=== PATIENT | female | born 1975 | race Caucasian/White ===

== ENCOUNTER 2023-02-22 01:45 | Inpatient (IN) | payer MEDICAID, SELFPAY ==
[2023-02-22] VITALS (22 sets, daily range): BP systolic 103–158; BP diastolic 51–97; PULSE 56–87; RESP 11–20; TEMP 36.6–36.9; O2SAT 98–100; BMI 28.2
--- NOTE | 2023-02-22 | IR_ITS ---
APPROVED REPORT Patient Location: [facility] Tender: BRITANY Jacobsen RT (R) PROCEDURES Left heart catheterization Left ventriculogram Selective coronary angiogram INDICATION Acute non-ST elevation myocardial infarction, Ventricular tachycardia Informed consent was obtained prior to the procedure. COMPLICATIONS None Estimated Blood Loss: Less than 10 ml TECHNIQUE One percent lidocaine used to anesthetize the right anterior aspect of the wrist. The right radial artery was accessed via the Seldinger technique. A 6 Slovak sheath was placed in the right radial artery. 150 mg magnesium sulfate, 800 mcg of nitroglycerin, 1mg Lidocaine and 5000 U Heparin were given through the arterial sheath. The papa catheter was also used to perform left heart catheterization, left ventriculogram and selective coronary angiogram. At the end of the procedure the sheath was removed good hemostasis was achieved using Traclet band, patient was transferred to the postop holding area in stable condition. ANGIOGRAPHIC RESULTS The left main artery Normal The left anterior descending artery Has proximal tandem eccentric 30% stenoses The circumflex artery Nondominant and normal The right coronary artery Is dominant. A large posterior lateral ventricular branch is widely patent. A smaller slightly less than 2 mm posterior descending artery has a distal 1 cm thrombus which subtotally occludes the vessel. Distal to the thrombus there appears to be a small degree of runoff The RANGEL ventriculogram reveals Ejection fraction 55% with inferior wall hypokinesis The left ventricular end-diastolic pressure 20 mmHg IMPRESSION Acute thrombosis of a smaller posterior descending artery Regional wall motion abnormality Mildly elevated LVEDP PLAN 1. I do not recommend instrumenting this vessel. Angiographically, the vessel is without atherosclerotic plaque and there appears to be relatively small distal runoff. There is scant flow distal to the thrombus and therapy should be directed at dissolving the thrombus. Integrilin drip will be started as a double bolus followed by 18-hour continuous drip. 2. Recommend Lovenox 1 mg/kg subcu twice daily 3. Continue Brilinta and aspirin 4. LDL less than 55 to be achieved with high intensity statin 5. Supportive care for at least 48 hours in the hospital due to ventricular tachycardia 6. Echocardiogram in the morning 7. Discontinue amiodarone drip and start beta-blockers 8. Continue IV nitroglycerin Electronically signed by : Sameer Beck MD 02/22/2023 05:21:25
--- NOTE | 2023-02-22 00:07 | PC.NURSE ---
called at this time wanting to transfer pt from [place] to this facility for cardiac services. 0048- [place] ED called at this time to give pt information and Jose Lewis spoke with Antony as well. Pt admitted to room 216 SD acute.
--- NOTE | 2023-02-22 01:55 | XR_ITS ---
PROCEDURE INFORMATION: Exam: XR Chest Exam date and time: 02/22/2023 3:08 AM Age: 47 years old Clinical indication: Sternal or substernal pain; Additional info: Chest pain TECHNIQUE: Imaging protocol: Radiologic exam of the chest. Views: 1 view. COMPARISON: No relevant prior studies available. FINDINGS: Lungs: Unremarkable. No consolidation. Pleural spaces: Unremarkable. No pleural effusion. No pneumothorax. Heart/Mediastinum: Unremarkable. No cardiomegaly. Bones/joints: Mild degenerative changes of the spine and shoulder joints.. IMPRESSION: No acute radiographic findings in the chest.
--- NOTE | 2023-02-22 02:09 | EXP.HP ---
History of Present Illness *Admission Date: 02/22/23 *Reason for visit:: Chest Pain *History of present illness: Ms. Zurita is a 47-year-old female with a past medical history of Bipolar Disorder, Anxiety Disorder, Hyperlipidemia, Tobacco Abuse and GERD. She presents to [facility] as a direct admit from [facility] due to an acute episode of chest pain. Per discussion with the transferring facility and with the patient, the patient was informed that her daughter had overdosed and required Narcan. After getting the new of the event the patient developed an acute episode of chest pain in the across the upper chest with radiation down into the left arm. She reports that the pain was associated with nausea, an episode of vomiting and dizziness. She was brought into the ER at [facility]. While in the transferring facility, EKG performed showed NSR with no ST segment elevation or depression, there was noted to be T wave inversion in 1 lead. High Sensitivy Troponin was elevated at 3459. CMP showed a K of 3.0. [facility], the patient then went on to develop NSVT. While in the ER at the [facility] facility the patient received Nitro sub lingual x 2, a nitro gtt, magnesium sulfate 2 grams, potassium chloride 40 meQ, Metoprolol iv push at 5 mg, Brilinta 180 mg, Lovenox 70 mg, Amiodarone 150 mg bolus and Morphine 4 mg. The ER Physician spoke with Pilates Instructor at this facility and transfer was recommended, other recommendations were to continue Amiodarone gtt. The patient was admitted with initial impression: NSTEMI. Cardiology has been consulted, the plan of care was discussed in length and detail with the patient at bedside on admission. She verbalized understanding and agreement with the plan of care. [facility] Disclaimer: The information contained in this section may have been updated after the patient was seen, as this information can be updated by other users. Medical History (Updated 02/22/23 @ 10:39 by Ammy Alejandra APRN) Anxiety disorder Bipolar 1 disorder Coronary artery disease Coronary artery thrombosis Depression GERD (gastroesophageal reflux disease) Hyperlipidemia Migraine RLS (restless legs syndrome) Surgical History (Updated 02/22/23 @ 02:41 by Latosha Bolton RN) History of cholecystectomy Hx of tubal ligation [place] teeth extracted Social History (Updated 02/22/23 @ 02:41 by Latosha Bolton RN) Smoking Status: Current every day smoker alcohol intake: never current occupational status: unemployed Travel in the last 8 weeks: Inside the [place] Review of Systems Review of Systems Review of systems:: pertinent systems reviewed and negative unless documented below Constitutional Constitutional: Reports system reviewed and no additional complaints, except as documented Eyes Eyes: Reports system reviewed and no additional complaints, except as documented ENT Ears, Nose, Mouth, and Throat: Reports system reviewed and no additional complaints, except as documented *Cardiovascular Cardiovascular: Reports chest pain, Reports chest pain at rest, Reports dyspnea, Reports lightheadedness and Reports radiating jaw, neck or arm pain *Respiratory Respiratory: Reports dyspnea *Gastrointestinal Gastrointestinal: Reports nausea and Reports vomiting *Genitourinary Genitourinary: Reports system reviewed and no additional complaints, except as documented *Musculoskeletal Musculoskeletal: Reports system reviewed and no additional complaints, except as documented Integumentary/Breasts Skin/Breast: Reports system reviewed and no additional complaints, except as documented *Neurologic Neurologic: Reports system reviewed and no additional complaints, except as documented Psychiatric Psychiatric: Reports system reviewed and no additional complaints, except as documented Endocrine Endocrine: Reports system reviewed and no additional complaints, e
[2023-02-22 02:28] LABS: Basophils # 0.1 K/mm3 (0-0.2); Basophils % 0.6 % (0.1-2.0); Eosinophils # 0.1 K/mm3 (0.0-0.4); Eosinophils % 0.4 % (0.1-12.0); Hematocrit 30.4 % (37.0-47.0); Hemoglobin 9.4 g/dL (12.2-16.2); Lymphocytes # 2.3 K/mm3 (0.7-4.5); Lymphocytes % 20.2 % (10-50); Mean Corpuscular Hemoglobin 24.4 pg (27.0-31.2); Mean Corpuscular Volume 78.6 fl (81-99); Mean Platelet Volume 11.9 fl (7.4-10.4); Monocytes # 0.3 K/mm3 (0.1-1.0); Monocytes % 2.8 % (1.7-9.3); Neutrophils # 8.7 K/mm3 (1.8-7.8); Platelet Count 222 K/mm3 (142-424); Red Blood Count 3.87 M/mm3 (4.20-5.40); Red Cell Distribution Width 17.8 % (11.5-17.5); White Blood Count 11.4 K/mm3 (4.8-10.8)
[2023-02-22 02:30] LABS: Chloride 102 mmol/L (98-107); Sodium 138 mmol/L (136-145)
[2023-02-22 02:31] LABS: Potassium 3.5 mmoL/L (3.5-5.1)
[2023-02-22 02:33] LABS: Alanine Aminotransferase 14 U/L (12-78); Albumin Level 3.9 g/dl (3.5-5.0); Albumin/Globulin Ratio 1.2 (1.1-1.8); Alkaline Phosphatase 127 U/L (38-126); Anion Gap 15.5 mEq/L (5-15); Aspartate Amino Transferase 84 U/L (14-36); Bilirubin,Total 0.6 mg/dl (0.2-1.3); Blood Urea Nitrogen 5 mg/dl (7-17); Calcium 8.3 mg/dl (8.4-10.2); Carbon Dioxide 24 mmol/L (22.0-30.0); Creatinine Clearance Estimated 121 mL/min (50-200); Estimated Glomerular Filt Rate 90 ml/min (>60); GFR (African American) 109 ML/MIN (>60); Globulin 3.2 g/dL (1.3-3.2); Glucose 109 mg/dl (74-100); Total Protein,Serum 7.1 g/dl (6.3-8.2)
[2023-02-22 02:34] LABS: Chol/HDL Ratio 5.1 (1-3.5); Cholesterol 153 mg/dl (140-200); HDL Cholesterol 30 mg/dl (40-60); Triglycerides 118 mg/dl (30-150); VLDL Cholesterol 24 mg/dL (0-40)
[2023-02-22 02:45] LABS: Direct LDL Cholesterol 102.51 mg/dL (100-129)
--- NOTE | 2023-02-22 03:06 | PC.NURSE ---
Addendum entered by Latosha Bolton RN 02/22/23 03:48: This Rn was in pt room at time. Pt appeared to have her head down with her eyes shut sitting up in bed but when asked if she felt okay, she stated she was feeling fine. Original Note: Notified Antony Godfrey that pt had a 50 beat run of vtach at this time. NNO
--- NOTE | 2023-02-22 03:22 | ECG_ITS ---
APPROVED REPORT Exam: Resting ECG HR:66 bpm ECG Measurements Heart Rate 66 AXES [place] 176 P 74 QRSd 89 QRS 40 QT 414 T 3 QTc 428 Conclusion SINUS RHYTHM POSSIBLE RIGHT VENTRICULAR CONDUCTION DELAY [RSR (QR) IN V1/V2] BORDERLINE ECG UNCONFIRMED REPORT Electronically signed by : Sean Coates MD 02/22/2023 21:20:35
[2023-02-22 03:28] LABS: Urine Pregnancy, HCG Qual. Negative (Negative)
--- NOTE | 2023-02-22 03:37 | PC.NURSE ---
3 beat run of vtach noted at 0330 7 beat run of vtach noted at 0334 5 beat run of vtach noted at 0335
--- NOTE | 2023-02-22 03:54 | PC.NURSE ---
Antony called at 035 stating requested to call recyclable materials distributor team in. quality assurance lab technician paged at 035. Received call back from everyone by [phone]
[2023-02-22 03:55] LABS: Coronavirus 19, PCR Not Detected (NotDetected); Influenza A, PCR Not Detected (NotDetected); Influenza B, PCR Not Detected (NotDetected)
[2023-02-22 04:02] LABS: Magnesium 2.1 mg/dl (1.6-2.3)
--- NOTE | 2023-02-22 04:09 | PC.NURSE ---
pt removed all jewlery including all rings, bracelets, toe ring, belly button ring with the expection of one ring on her right thumb, for heart cath.
--- NOTE | 2023-02-22 04:28 | PC.NURSE ---
photo lab manager staff called me at this time stating they were ready for pt to be brought down to mechanical laboratory technician. Pt had wrong zolle pads on upon entering room. Zolle and zolle pads retrieved from ICU and placed on pt. Pt taken to mechanical laboratory technician by myself and Swathi Ugalde.
--- NOTE | 2023-02-22 04:40 | PC.NURSE ---
PT LEFT FLOOR TO WATER TAXI DRIVER AT THIS TIME
--- NOTE | 2023-02-22 05:30 | PC.NURSE ---
PT ARRIVED TO FLOOR FROM PALS SPECIALIST AT THIS TIME
--- NOTE | 2023-02-22 06:19 | PC.NURSE ---
0350 Notified that Ebony SAGASTUME would like to perform emergent heart cath per Kat Godfrey. 0352 Updated pt with DIGITAL SOLUTION ARCHITECT Kat Godfrey in pt room 0358 Consent form signed 0400 FORGING ENGINEER in room to clean and clip pt
--- NOTE | 2023-02-22 06:47 | PC.NURSE ---
Pt has continued to have runs of 3-4 beats of vtach since arriving back from laboratory chemical assistant. Tracelet in pace to right radial, no drainage noted. Nitro gtt is running @ 15mcg/min, Integrilin gtt @ 2mcg/kg/min. Family is at bedside, call light within reach.
[2023-02-22 06:49] LABS: Basophils # 0.1 K/mm3 (0-0.2); Basophils % 0.7 % (0.1-2.0); Eosinophils # 0.1 K/mm3 (0.0-0.4); Eosinophils % 1.1 % (0.1-12.0); Hematocrit 28.7 % (37.0-47.0); Hemoglobin 8.8 g/dL (12.2-16.2); Lymphocytes # 2.6 K/mm3 (0.7-4.5); Lymphocytes % 27.2 % (10-50); Mean Corpuscular HGB Conc 30.8 g/dL (31.8-35.4); Mean Corpuscular Hemoglobin 24.6 pg (27.0-31.2); Mean Corpuscular Volume 80.1 fl (81-99); Monocytes # 0.3 K/mm3 (0.1-1.0); Monocytes % 3.5 % (1.7-9.3); Neutrophils # 6.5 K/mm3 (1.8-7.8); Neutrophils % 67.5 % (37.0-80.0); Platelet Count 201 K/mm3 (142-424); Red Blood Count 3.58 M/mm3 (4.20-5.40); Red Cell Distribution Width 17.8 % (11.5-17.5); White Blood Count 9.6 K/mm3 (4.8-10.8)
[2023-02-22 06:54] LABS: Chloride 105 mmol/L (98-107); Sodium 138 mmol/L (136-145)
[2023-02-22 06:55] LABS: Potassium 3.7 mmoL/L (3.5-5.1)
[2023-02-22 06:58] LABS: Anion Gap 12.7 mEq/L (5-15); Blood Urea Nitrogen 5 mg/dl (7-17); Carbon Dioxide 24 mmol/L (22.0-30.0); Creatinine Clearance Estimated 141 mL/min (50-200); Estimated Glomerular Filt Rate 107 ml/min (>60); GFR (African American) 130 ML/MIN (>60); Glucose 96 mg/dl (74-100)
--- NOTE | 2023-02-22 07:30 | HMH.PHAINT1 ---
Pharmacy Intervention Comments: MEDICATION RECONCILIATION COMPLETED ON PATIENT USING EXTERNAL FILL HISTORY FROM PHARMACY. -CHRISTOPHER CHIRINOS, FELICIANOD
--- NOTE | 2023-02-22 10:21 | PC.NURSE ---
radial band being removed slowly r/t pt being on integrilin drip. 0750 2 ml removed 0830 2 ml removed 0900 2 ml removed 0945 2 ml removed 1005 2 ml added back to band r/t bleeding at site.
--- NOTE | 2023-02-22 10:34 | EXP.CARD.CON ---
History of Present Illness History of Present Illness Consult date: 02/22/23 Requesting physician: Jose Houston Consult reason: chest pain Chief complaint: chest pain History of present illness: This is a 47-year-old white female with a past medical history of bipolar disorder, anxiety, hyperlipidemia, tobacco use and GERD. The patient presented originally to [facility] with chest pain. The patient had just found out that her daughter had overdosed and required Narcan. She denied developed sudden onset of chest pain across her upper chest with radiation down her left arm. This was a sharp pain. It was associated with shortness of breath, nausea, vomiting and dizziness. The patient was evaluated at [facility] and found to have a positive high-sensitivity troponin. The patient was transferred here to [facility]. The patient's EKG showed no ischemic changes but her troponin here at our facility was elevated as well at 11.70. The patient was taken to the cardiac catheterization laboratory. The patient had an acute thrombosis of a smaller PDA. The vessel does not have any atherosclerotic plaque and there appears to be relatively small distal runoff. There is scant flow distal to the thrombus in therapy will be directed at dissolving of the thrombus and no PCI was performed. The patient did have some other mild CAD noted. She has been started on Integrilin drip, subcu Lovenox and dual antiplatelet therapy. She remains on a nitroglycerin drip as well. She denies any chest pain or pressure currently. She denies any shortness of breath or edema. She denies any fever, chills, nausea, vomiting, diarrhea, PND orthopnea. The patient did also have some nonsustained ventricular tachycardia while she was at [facility]. She was treated with amiodarone and started on amiodarone drip. Her amiodarone has been discontinued and she will be started on beta-blockers. [facility] Disclaimer: The information contained in this section may have been updated after the patient was seen, as this information can be updated by other users. Medical History (Updated 02/22/23 @ 10:39 by Ammy Alejandra APRN) Anxiety disorder Bipolar 1 disorder Coronary artery disease Coronary artery thrombosis Depression GERD (gastroesophageal reflux disease) Hyperlipidemia Migraine RLS (restless legs syndrome) Surgical History (Updated 02/22/23 @ 02:41 by Latosha Bolton RN) History of cholecystectomy Hx of tubal ligation [place] teeth extracted Social History (Updated 02/22/23 @ 02:41 by Latosha Bolton RN) Smoking Status: Current every day smoker alcohol intake: never current occupational status: unemployed Travel in the last 8 weeks: [place] the [place] Review of Systems Review of Systems Review of systems:: pertinent systems reviewed and negative unless documented below Constitutional Constitutional: Reports system reviewed and no additional complaints, except as documented Eyes Eyes: Reports system reviewed and no additional complaints, except as documented ENT Ears, Nose, Mouth, and Throat: Reports system reviewed and no additional complaints, except as documented and Reports dizziness *Cardiovascular Cardiovascular: Reports system reviewed and no additional complaints, except as documented, Reports as per HPI, Reports chest pain, Reports chest pain at rest, Reports chest pain with activity, Reports dyspnea, Reports dyspnea on exertion and Reports lightheadedness *Respiratory Respiratory: Reports system reviewed and no additional complaints, except as documented, Reports dyspnea and Reports dyspnea on exertion *Gastrointestinal Gastrointestinal: Reports system reviewed and no additional complaints, except as documented, Reports nausea and Reports vomiting *Musculoskeletal Musculoskeletal: Reports system reviewed and no additional complaints, except as documented Integumentary/Breasts Skin/Breast: Rep
--- NOTE | 2023-02-22 14:40 | PC.NURSE ---
Nitro titrated from 15 mcg/min to 10 mcg/min. Blood pressure remains stable. Last BP was 137/80. Pt. denies chest pain at this time.
--- NOTE | 2023-02-22 15:55 | PC.NURSE ---
Nitro drip titrated down to 5 mcg/min. Pts BPs remain stable and pt. continues to deny chest pain.
--- NOTE | 2023-02-22 16:30 | PC.NURSE ---
Nitro drip stopped at this time per Dr. Houston. Pt. has no complaints at this time.
--- NOTE | 2023-02-22 17:25 | PC.NURSE ---
Radial band removed. No bleeding noted. Wrist cleaned with normal saline and alcohol. Pressure dressing applied. Telfa/ tegaderm remain intact. Pt. instructed on activity restrictions with right upper extremity.
--- NOTE | 2023-02-22 21:09 | PC.NURSE ---
Pt states she started her period today, and normally does not bleed much. When pt used bedside commode, pt passed 2 large blood clots. Kat Selby DYED YARN OPERATOR made aware. Pt educated on effects of blood thinner medication.
--- NOTE | 2023-02-22 21:57 | PC.NURSE ---
Pt passed 2 more blood clots at this time. (not as large)
--- NOTE | 2023-02-22 22:53 | PC.NURSE ---
[place] yelling coming from pts room. Upon entering pts room, pt was yelling at her mother to sit down. Pt states that her mother took Ambien and Neurotin and is worried that she is going to fall. Pts mother stumbling around room and slurring words. Pt was asking her mother to leave, and was calling a family member to come pick her up and take her home. STILL PHOTOGRAPHER wheeled pts mother to ER doors in a wheelchair. Pts BP increased to 175/110 during this time. Remained with pt, and tried to calm her down. Pt is now resting in bed with no complaints. BP-146/89.
--- NOTE | 2023-02-22 22:53 | PC.NURSE ---
[place] yelling coming from pts room. Upon entering pts room, pt was yelling at her mother to sit down. Pt states that her mother took Ambien and Neurotin and is worried that she is going to fall. Pts mother stumbling around room and slurring words. Pt was asking her mother to leave, and was calling a family member to come pick her up and take her home. PROTECTIVE SERVICES OFFICER wheeled pts mother to ER doors in a wheelchair. Pts BP increased to 175/110 during this time. Remained with pt, and tried to calm her down. Pt then noted to have 3 beat run of V-Tach shortly after stressful episode. Pt is now resting in bed with no complaints. BP-146/89.
--- NOTE | 2023-02-22 23:06 | PC.NURSE ---
Pt passed 1 large blood clot at this time.
--- NOTE | 2023-02-22 23:10 | PC.NURSE ---
5 beat run v tach at this time
[2023-02-23] VITALS (14 sets, daily range): BP systolic 105–145; BP diastolic 63–82; PULSE 50–64; RESP 16–20; TEMP 36.6–37; O2SAT 96–100; BMI 27.5
--- NOTE | 2023-02-23 04:55 | PC.NURSE ---
Pt has denied CP this shift. Pt reported palpitations one time this shift after using BSC. Pt stated it only lasted for a couple of seconds. No changes on tele at that time. Remains on RA, tolerating well. Ectopy noted on tele monitor a few times this shift, did not have wide QRS complex. VSS. Pt has used BSC independently/with standby assist and tolerated well. Right radial cath site dressing CDI.
[2023-02-23 06:27] LABS: Basophils # 0.1 K/mm3 (0-0.2); Basophils % 0.6 % (0.1-2.0); Eosinophils # 0.2 K/mm3 (0.0-0.4); Eosinophils % 1.6 % (0.1-12.0); Hematocrit 26.5 % (37.0-47.0); Lymphocytes # 3.1 K/mm3 (0.7-4.5); Lymphocytes % 32.1 % (10-50); Mean Corpuscular HGB Conc 30.4 g/dL (31.8-35.4); Mean Corpuscular Hemoglobin 24.7 pg (27.0-31.2); Mean Corpuscular Volume 81.2 fl (81-99); Mean Platelet Volume 11.6 fl (7.4-10.4); Monocytes # 0.4 K/mm3 (0.1-1.0); Monocytes % 4.6 % (1.7-9.3); Neutrophils # 5.8 K/mm3 (1.8-7.8); Neutrophils % 61.1 % (37.0-80.0); Platelet Count 172 K/mm3 (142-424); Red Blood Count 3.26 M/mm3 (4.20-5.40); Red Cell Distribution Width 17.7 % (11.5-17.5); White Blood Count 9.6 K/mm3 (4.8-10.8)
[2023-02-23 06:31] LABS: Chloride 103 mmol/L (98-107); Sodium 137 mmol/L (136-145)
[2023-02-23 06:32] LABS: Potassium 4.1 mmoL/L (3.5-5.1)
[2023-02-23 06:34] LABS: Alanine Aminotransferase 15 U/L (12-78); Albumin Level 3.2 g/dl (3.5-5.0); Albumin/Globulin Ratio 1.2 (1.1-1.8); Alkaline Phosphatase 110 U/L (38-126); Anion Gap 13.1 mEq/L (5-15); Aspartate Amino Transferase 70 U/L (14-36); Bilirubin,Total 0.4 mg/dl (0.2-1.3); Blood Urea Nitrogen 7 mg/dl (7-17); Calcium 8.1 mg/dl (8.4-10.2); Carbon Dioxide 25 mmol/L (22.0-30.0); Creatinine Clearance Estimated 117 mL/min (50-200); Estimated Glomerular Filt Rate 90 ml/min (>60); GFR (African American) 109 ML/MIN (>60); Globulin 2.6 g/dL (1.3-3.2); Glucose 85 mg/dl (74-100); Total Protein,Serum 5.8 g/dl (6.3-8.2)
[2023-02-23 06:35] LABS: Magnesium 2.1 mg/dl (1.6-2.3)
--- NOTE | 2023-02-23 09:51 | EXP.CARD.PN ---
Subjective Subjective Date: 02/23/23 Time: 09:00 Principal diagnosis: chest pain, PDA thrombus Interval history: This is a 47-year-old female who was admitted to the hospital with chest pain. She was found to have an elevated troponin and taken to the Emergency Preparedness Coordinator. The patient did have an acute thrombosis of the small PDA. There was not any atherosclerotic plaque in the vessel and there did appear to be a relatively small amount of distal runoff. There is scant flow distal to the thrombus so medical therapy was directed at dissolving the thrombus and no PCI was performed. She was on an Integrilin drip for 18 hours which has now been stopped. She remains on Brilinta, aspirin and Lovenox. She denies any chest pain or pressure this morning. She denies any shortness of breath or edema. She denies any fever, chills, nausea, vomiting, diarrhea, PND or orthopnea. Exam Data for Last 24 hours Vital signs and Labs for Last 24 Hours: Temp Pulse Resp BP Pulse Ox 98.6 F 60 16 115/68 98 02/23/23 08:00 02/23/23 06:00 02/23/23 06:00 02/23/23 06:00 02/23/23 06:00 Laboratory Results - last 24 hr 02/23/23 05:32: WBC 9.6, RBC 3.26 L, Hgb 8.0 L, Hct 26.5 L, MCV 81.2, MCH 24.7 L, MCHC 30.4 L, RDW 17.7 H, Plt Count 172, MPV 11.6 H, Neut % (Auto) 61.1, Lymph % (Auto) 32.1, [place] % (Auto) 4.6, Eos % (Auto) 1.6, Baso % (Auto) 0.6, Neut # (Auto) 5.8, Lymph # (Auto) 3.1, [place] # (Auto) 0.4, Eos # (Auto) 0.2, Baso # (Auto) 0.1 02/23/23 05:32: Sodium 137, Potassium 4.1, Chloride 103, Carbon Dioxide 25, Anion Gap 13.1, BUN 7 D, Creatinine 0.70, Estimated Creat Clear 117, Estimated GFR 90, Est GFR ( Amer) 109, Glucose 85, Calcium 8.1 L, Magnesium 2.1, Total Bilirubin 0.4, AST 70 H, ALT 15, Alkaline Phosphatase 110, Total Protein 5.8 L, Albumin 3.2 L D, Globulin 2.6, Albumin/Globulin Ratio 1.2 I & O for Last 24 hours: Intake & Output 02/20/23 02/21/23 02/22/23 02/23/23 23:59 23:59 23:59 23:59 Intake Total 1080 / 1080 120 / 120 Output Total 450 / 450 600 / 600 Balance 630 / 630 -480 / -480 Weight 169 lb 7 oz 165 lb 2 oz Narrative: Telemetry strip shows sinus rhythm with a rate in the 60s and 70s. Constitutional Constitutional: no acute distress and average body habitus *Routine HEENT Exam Head: Present normocephalic and atraumatic ENT: Present mucous membranes moist *Routine Neck Exam Neck: Present supple, full ROM and normal carotid upstroke; Absent JVD, carotid bruit or lymphadenopathy *Routine Respiratory Exam Respiratory: Present CTA bilaterally, normal respiratory effort, able to speak in complete sentences and symmetric chest movement *Routine Cardiovascular Exam Cardiovascular: Present RRR, Normal S1 and Normal S2; Absent murmur or gallop *Routine Abdominal Exam Abdominal: Present soft and normoactive bowel sounds; Absent tenderness, distended or organomegaly *Routine Extremities Exam Extremities: Present full ROM, pulses intact and normal capillary refill; Absent cyanosis, clubbing or edema *Routine Skin Exam Skin: Present intact and warm; Absent erythema *Routine Neurological Exam Neurological: Present alert, oriented X3 and CN II-XII intact; Absent sensory deficit or motor deficit Routine Psychiatric Exam Psychiatric: Present normal affect Progress Note: A&P Assessment and plan (1) Coronary artery thrombosis: Status: Acute (2) NSTEMI (non-ST elevated myocardial infarction): Status: Acute (3) NSVT (nonsustained ventricular tachycardia): Status: Acute (4) Bipolar disorder: Status: Acute (5) Anxiety disorder: Status: Acute (6) Coronary artery disease: Status: Acute (7) Anemia: Status: Acute Assessment and Plan Assessment and Plan for All Diagnoses:: Plan: 1. This is a 47-year-old white female who was transferred to [facility] from [facility] secondary to chest pain and an elevated troponin consistent with a non-STEMI. The patient underwe
--- NOTE | 2023-02-23 10:10 | ECG_ITS ---
APPROVED REPORT Exam: Resting ECG HR:60 bpm ECG Measurements Heart Rate 60 AXES [place] 170 P 77 QRSd 79 QRS 35 QT 447 T -38 QTc 447 Conclusion SINUS RHYTHM POSSIBLE RIGHT VENTRICULAR CONDUCTION DELAY [RSR (QR) IN V1/V2] MODERATE T-WAVE ABNORMALITY, CONSIDER INFERIOR ISCHEMIA [-0.1+ mV T-WAVE IN II/aVF] ABNORMAL ECG UNCONFIRMED REPORT Electronically signed by : Sean Coates MD 02/23/2023 21:21:17
[2023-02-23 10:33] LABS: Iron 27 ug/dL (37-170)
[2023-02-23 10:37] LABS: Reticulocyte % (Auto) 1.7 % (0.9-3.2)
[2023-02-23 10:43] LABS: Total Iron Binding Capacity 349 ug/dL (265-497)
[2023-02-23 11:09] LABS: Ferritin 7.67 ng/ml (6.24-137)
[2023-02-23 11:24] LABS: Vitamin B12 349 pg/mL (239-931)
[2023-02-23 11:48] LABS: Folate 4.47 ng/mL
--- NOTE | 2023-02-23 16:15 | EXP.ACUTE.PN ---
Subjective *Date: 02/23/23 *Time: 16:15 Interval history: Chest pain resolved. Stable on room air. Still fatigued but feeling better. No nausea or vomiting. Hemodynamically stable. Blood pressure better controlled. Medical Exam Vital signs and Labs for Last 24 Hours: Vital Signs Temp Pulse Pulse Pulse Resp BP Pulse Ox 02/23/23 15:53 98.5 F 56 L 16 105/67 L 99 02/23/23 12:00 61 20 122/73 100 02/23/23 11:15 98.2 F 02/23/23 07:50 60 99 02/23/23 10:00 63 20 126/73 99 02/23/23 08:00 64 20 111/66 99 02/23/23 08:00 98.6 F 02/23/23 06:00 60 16 115/68 98 02/23/23 04:00 60 02/23/23 04:00 98.3 F 58 L 16 124/69 98 02/23/23 03:00 63 16 130/73 96 02/23/23 02:00 59 L 18 122/67 99 02/23/23 00:00 58 L 02/22/23 20:00 60 02/23/23 00:00 98 F 56 L 18 145/82 H 100 02/22/23 22:00 59 L 16 120/72 100 02/22/23 20:00 98.5 F 60 16 129/69 99 02/22/23 18:00 59 L 11 L 106/51 L 99 Intake and Output 02/23/23 02/23/23 02/23/23 07:59 15:59 23:59 Intake Total 480 / 480 Output Total 600 / 1500 900 / 1500 Balance -600 / -1020 -420 / -1020 Intake: Intake, Oral Amount 480 / 480 Output: Output, Urine Amount 600 / 1500 900 / 1500 Other: Number of Unmeasured Voids 0 Weight 74.899 kg 75 kg Patient Weight 02/23/23 23:59 Weight 75 kg Laboratory Results - last 24 hr 02/23/23 05:32: WBC 9.6, RBC 3.26 L, Hgb 8.0 L, Hct 26.5 L, MCV 81.2, MCH 24.7 L, MCHC 30.4 L, RDW 17.7 H, Plt Count 172, MPV 11.6 H, Neut % (Auto) 61.1, Lymph % (Auto) 32.1, [place] % (Auto) 4.6, Eos % (Auto) 1.6, Baso % (Auto) 0.6, Neut # (Auto) 5.8, Lymph # (Auto) 3.1, [place] # (Auto) 0.4, Eos # (Auto) 0.2, Baso # (Auto) 0.1 02/23/23 05:32: Sodium 137, Potassium 4.1, Chloride 103, Carbon Dioxide 25, Anion Gap 13.1, BUN 7 D, Creatinine 0.70, Estimated Creat Clear 117, Estimated GFR 90, Est GFR ( Amer) 109, Glucose 85, Calcium 8.1 L, Magnesium 2.1, Total Bilirubin 0.4, AST 70 H, ALT 15, Alkaline Phosphatase 110, Total Protein 5.8 L, Albumin 3.2 L D, Globulin 2.6, Albumin/Globulin Ratio 1.2 02/23/23 05:32: Retic Count (auto) 1.7 02/23/23 05:32: Iron 27 L, TIBC 349, Iron Saturation 7.08234 L, Ferritin 7.67, Vitamin B12 349, Folate 4.47 I & O for Labs for Last 24 Hours: Intake & Output 02/20/23 02/21/23 02/22/23 02/23/23 23:59 23:59 23:59 23:59 Intake Total 1080 / 1080 480 / 480 Output Total 450 / 450 1500 / 1500 Balance 630 / 630 -1020 / -1020 Weight 76.856 kg 75 kg Constitutional: Present no acute distress Head: Present atraumatic and normocephalic ENT: Present normal exam Respiratory: Present CTA bilaterally and normal respiratory effort; Absent rhonchi, wheezes or crackles Cardiac: Present Reg Rate and Rhythm GI: Present normal bowel sounds; Absent tenderness Extremities: Present normal inspection and full ROM Skin: Present intact; Absent erythema Neuro: Present Grossly Intact, alert, awake, oriented x 3 and moves all extremities Assessment and Plan *Assessment and plan (1) NSTEMI (non-ST elevated myocardial infarction): Status: Acute Category: Medical Code(s): I21.4 - Non-ST elevation (NSTEMI) myocardial infarction (2) NSVT (nonsustained ventricular tachycardia): Status: Acute Category: Medical Code(s): I47.29 - Other ventricular tachycardia (3) Bipolar disorder: Status: Acute Category: Medical Code(s): F31.9 - Bipolar disorder, unspecified (4) Anxiety disorder: Status: Acute Category: Medical Code(s): F41.9 - Anxiety disorder, unspecified (5) RLS (restless legs syndrome): Status: Acute Category: Medical Code(s): G25.81 - Restless legs syndrome (6) Migraine: Status: Acute Category: Medical Code(s): G43.909 - Migraine, unspecified, not intractable, without status migrainosus
--- NOTE | 2023-02-23 19:59 | PC.NURSE ---
Pt has rested in bed off and on this shift. able to ambulate to bathroom without assistance. a/ox 4 no chest pain noted this shift. lungs clear throughout, bowel sounds are active nad noted.
[2023-02-24] VITALS: PULSE 60
[2023-02-24 04:00] VITALS: BP 90/56; PULSE 57; PULSE 61; RESP 18; TEMP 36.6; O2SAT 95; BMI 27.3
--- NOTE | 2023-02-24 05:08 | PC.NURSE ---
PATIENT HAS RESTED WELL SINCE AROUND 2300. DENIES PAIN, SOA, OR DISCOMFORT. SINUS RHYTHM ON TELE. DRSG TO RIGHT RADIAL C/D/I. TOLERATING FOOD AND FLUIDS. INDEPENDENT TO THE BATHROOM. VITAL SIGNS STABLE/AFEBRILE.
[2023-02-24 05:54] LABS: Basophils # 0.1 K/mm3 (0-0.2); Basophils % 0.6 % (0.1-2.0); Eosinophils # 0.1 K/mm3 (0.0-0.4); Eosinophils % 1.5 % (0.1-12.0); Hematocrit 27.6 % (37.0-47.0); Hemoglobin 8.4 g/dL (12.2-16.2); Lymphocytes # 2.5 K/mm3 (0.7-4.5); Lymphocytes % 29.4 % (10-50); Mean Corpuscular HGB Conc 30.5 g/dL (31.8-35.4); Mean Corpuscular Hemoglobin 24.7 pg (27.0-31.2); Mean Platelet Volume 11.4 fl (7.4-10.4); Monocytes # 0.4 K/mm3 (0.1-1.0); Monocytes % 5.1 % (1.7-9.3); Neutrophils # 5.5 K/mm3 (1.8-7.8); Neutrophils % 63.5 % (37.0-80.0); Platelet Count 169 K/mm3 (142-424); Red Cell Distribution Width 17.4 % (11.5-17.5); White Blood Count 8.6 K/mm3 (4.8-10.8)
[2023-02-24 06:05] LABS: Alanine Aminotransferase 14 U/L (12-78); Albumin Level 3.4 g/dl (3.5-5.0); Albumin/Globulin Ratio 1.2 (1.1-1.8); Alkaline Phosphatase 102 U/L (38-126); Aspartate Amino Transferase 40 U/L (14-36); Bilirubin,Total 0.5 mg/dl (0.2-1.3); Blood Urea Nitrogen 7 mg/dl (7-17); Calcium 8.1 mg/dl (8.4-10.2); Carbon Dioxide 25 mmol/L (22.0-30.0); Chloride 108 mmol/L (98-107); Creatinine Clearance Estimated 117 mL/min (50-200); Estimated Glomerular Filt Rate 90 ml/min (>60); GFR (African American) 109 ML/MIN (>60); Globulin 2.9 g/dL (1.3-3.2); Glucose 92 mg/dl (74-100); Sodium 138 mmol/L (136-145); Total Protein,Serum 6.3 g/dl (6.3-8.2)
--- NOTE | 2023-02-24 06:27 | EXP.DC.SUM ---
General Admission date:: 02/22/23 Discharge date: 02/24/23 HPI HPI HPI: Ms. Zurita is a 47-year-old female with a past medical history of Bipolar Disorder, Anxiety Disorder, Hyperlipidemia, Tobacco Abuse and GERD. She presents to [facility] as a direct admit from [facility] due to an acute episode of chest pain. Per discussion with the transferring facility and with the patient, the patient was informed that her daughter had overdosed and required Narcan. After getting the new of the event the patient developed an acute episode of chest pain in the across the upper chest with radiation down into the left arm. She reports that the pain was associated with nausea, an episode of vomiting and dizziness. She was brought into the ER at [facility]. While in the transferring facility, EKG performed showed NSR with no ST segment elevation or depression, there was noted to be T wave inversion in 1 lead. High Sensitivy Troponin was elevated at 3459. CMP showed a K of 3.0. [facility] the patient then went on to develop NSVT. While in the ER at the [facility] the patient received Nitro sub lingual x 2, a nitro gtt, magnesium sulfate 2 grams, potassium chloride 40 meQ, Metoprolol iv push at 5 mg, Brilinta 180 mg, Lovenox 70 mg, Amiodarone 150 mg bolus and Morphine 4 mg. The ER Physician spoke with [employer] at this facility and transfer was recommended, other recommendations were to continue Amiodarone gtt. The patient was admitted with initial impression: NSTEMI. Cardiology has been consulted, the plan of care was discussed in length and detail with the patient at bedside on admission. She verbalized understanding and agreement with the plan of care. Hospital Course Hospital Course Hospital Course: 47-year-old female with past medical history Bipolar Disorder, Anxiety Disorder, Hyperlipidemia, Chronic Tobacco Abuse presents due to acute episode of chest pain - NSTEMI -CAD -Hyperlipidemia -Hypertension Cardiology consulted, appreciate consult.? Taken to [facility] 02/22, found to have thrombus in posterior diagonal artery.? Treated medically with Integrilin drip and nitro drip. Blood pressure better controlled. Chest pain resolved. Patient started on dual antiplatelet therapy with Brilinta and aspirin. Treated with Lovenox therapeutically dosed 1 apolonia per kilogram while admitted. We will discontinue this at discharge. Patient also started on metoprolol for blood pressure and heart rate control. Plan to continue metoprolol 100 mg daily. Medically stable for discharge home. Will need close follow-up with cardiology. Encouraged risk factor modification. Counseled on smoking cessation. Increase statin to 80 mg Lipitor daily for high intensity cholesterol control. Anemia - Iron deficient.? 1 dose of IV Venofer 220 mg today.? Would benefit from completing course as an outpatient. Reviewed TIBC, iron level, iron saturation, all low. Given her iron deficient anemia, would benefit from considering etiologies and completing/reviewing work-up for possible cancer. Patient reports having had a colonoscopy within the past 2 to 3 years and an upper scope as well. States she does have sometimes heavy and sometimes normal periods. Further work-up recommended to evaluate for etiology other than just nutritional. - Bipolar disorder: Continue home dose of Zoloft - Anxiety Disorder: Continue home dose of Buspirone - RLS: Continue home dose of Gabapentin - Migraine: Continue home dose of Aimovig - Chronic Tobacco Abuse: NRT, counselor/art therapist on need for cessation Stable for discharge home. Plan to have close follow-up with cardiology in the coming weeks. Spent 40 minutes in discharge counseling and direct care with patient. Exam Data for Last 24 hours Vital signs and Labs for Last 24 Hours: Temp Pulse Resp BP Pulse Ox 97.8 F 61 18 90/56 L 95 02/24/23 04:00 02/24/23
[2023-02-24 08:00] VITALS: BP 101/60; PULSE 63; PULSE 70; RESP 16; TEMP 36.7; O2SAT 99
--- NOTE | 2023-02-24 09:04 | EXP.CARD.PN ---
Subjective Subjective Date: 02/24/23 Time: 08:30 Principal diagnosis: chest pain, PDA thrombus Interval history: This is a 47-year-old female who is admitted to the hospital for chest pain. The patient was found to have an elevated troponin consistent with a non-STEMI. She was taken to the [facility] and found to have an acute thrombosis of a small PDA. No PCI was recommended because the clot was relatively small and had some distal runoff. Therapy has been directed at resolving the thrombus. She was on Integrilin and Lovenox as well as Brilinta and aspirin. This morning she denies any chest pain or pressure. She denies any shortness of breath or edema. She denies any fever, chills, nausea, vomiting, diarrhea, PND orthopnea. Exam Data for Last 24 hours Vital signs and Labs for Last 24 Hours: Temp Pulse Resp BP Pulse Ox 98.0 F 63 16 101/60 L 99 02/24/23 08:00 02/24/23 08:00 02/24/23 08:00 02/24/23 08:00 02/24/23 08:00 Laboratory Results - last 24 hr 02/23/23 05:32: Retic Count (auto) 1.7 02/23/23 05:32: Iron 27 L, TIBC 349, Iron Saturation 7.51323 L, Ferritin 7.67, Vitamin B12 349, Folate 4.47 02/24/23 05:35: WBC 8.6, RBC 3.40 L, Hgb 8.4 L, Hct 27.6 L, MCV 81.0, MCH 24.7 L, MCHC 30.5 L, RDW 17.4, Plt Count 169, MPV 11.4 H, Neut % (Auto) 63.5, Lymph % (Auto) 29.4, [place] % (Auto) 5.1, Eos % (Auto) 1.5, Baso % (Auto) 0.6, Neut # (Auto) 5.5, Lymph # (Auto) 2.5, [place] # (Auto) 0.4, Eos # (Auto) 0.1, Baso # (Auto) 0.1 02/24/23 05:35: Sodium 138, Potassium 4.0, Chloride 108 H, Carbon Dioxide 25, Anion Gap 9.0, BUN 7, Creatinine 0.70, Estimated Creat Clear 117, Estimated GFR 90, Est GFR ( Amer) 109, Glucose 92, Calcium 8.1 L, Total Bilirubin 0.5, AST 40 H D, ALT 14, Alkaline Phosphatase 102, Total Protein 6.3, Albumin 3.4 L, Globulin 2.9, Albumin/Globulin Ratio 1.2 I & O for Last 24 hours: Intake & Output 02/21/23 02/22/23 02/23/23 02/24/23 23:59 23:59 23:59 23:59 Intake Total 1080 / 1080 1200 / 1440 480 / 480 Output Total 450 / 450 1500 / 1500 0 / 0 Balance 630 / 630 -300 / -60 480 / 480 Weight 169 lb 7 oz 165 lb 5.547 oz 164 lb Narrative: Telemetry strip shows sinus rhythm with a rate of 80s. EKG from yesterday shows sinus rhythm with inferior T wave abnormalities. Constitutional Constitutional: no acute distress and average body habitus *Routine HEENT Exam Head: Present normocephalic and atraumatic ENT: Present mucous membranes moist *Routine Neck Exam Neck: Present supple, full ROM and normal carotid upstroke; Absent JVD, carotid bruit or lymphadenopathy *Routine Respiratory Exam Respiratory: Present CTA bilaterally, normal respiratory effort, able to speak in complete sentences and symmetric chest movement *Routine Cardiovascular Exam Cardiovascular: Present RRR, Normal S1 and Normal S2; Absent murmur or gallop *Routine Abdominal Exam Abdominal: Present soft and normoactive bowel sounds; Absent tenderness, distended or organomegaly *Routine Extremities Exam Extremities: Present full ROM, pulses intact and normal capillary refill; Absent cyanosis, clubbing or edema *Routine Skin Exam Skin: Present intact and warm; Absent erythema *Routine Neurological Exam Neurological: Present alert, oriented X3 and CN II-XII intact; Absent sensory deficit or motor deficit Routine Psychiatric Exam Psychiatric: Present normal affect Progress Note: A&P Assessment and plan (1) NSTEMI (non-ST elevated myocardial infarction): Status: Acute (2) NSVT (nonsustained ventricular tachycardia): Status: Acute (3) Bipolar disorder: Status: Acute (4) Anxiety disorder: Status: Acute (5) Coronary artery thrombosis: Status: Acute (6) Coronary artery disease: Status: Acute (7) Anemia: Status: Acute Assessment and Plan Assessment and Plan for All Diagnoses:: Plan: 1. This is a 47-year-old white female who was transferred to [facility] from [facility] secondary to a
--- NOTE | 2023-02-24 09:08 | HMH.PHAINT1 ---
Pharmacy Intervention Comments: DISCHARGE MEDICATION COUNSELING COMPLETED. DISCUSSED STOPPING OMEPRAZOLE AND ATORVASTATIN 40 MG, START THE FOLLOWING: -ASPIRIN (BLOOD THINNER, DAILY, BLEED/BRUISE RISK, BLEED LOCATION/APPEARANCE, BUMP HEAD = GO TO ER) -ATORVASTATIN 80 MG (ON PREVIOUSLY, MUSCLE PAIN/WEAKNESS RISK, CAN TAKE TWO OF THE 40 MG TAB IF STILL HAS AT HOME) -METOPROLOL (BLOOD PRESSURE/HEART RATE, DAILY, SLOWED HR, LOW BP, FATIGUE, DIZZINESS, LIGHTHEADEDNESS POSSIBLE) -PANTOPRAZOLE (FOR REFLUX, TAKE AT BEDTIME, HEADACHE POSSIBLE) -BRILINTA (BLOOD THINNER, TWICE DAILY, SOB, BLEED/BRUISE RISK, BLEED LOCATION/APPEARANCE, BUMP HEAD = GO TO ER) PATIENT VERBALIZED NO QUESTIONS AT THIS TIME. PATIENT ALSO COUNSELED OVER FERROUS SULFATE AT NURSE NEVILLE'S REQUEST DR DOMINGUEZ MAY ADD TO MED LIST, WATCH FOR DARKER STOOLS BUT SHOULDNT CHANGE CONSISTENCY OF STOOL LIKE A GI BLEED WOULD. UPSET STOMACH AND CONSTIPATION POSSIBLE.
--- NOTE | 2023-02-27 14:19 | CARE MANAGER ---
Spoke with patient for post-discharge phone interview, no issues noted.
== END 2023-02-24 10:16 | disposition home or self-care (01) | DRG 281 ==
PROVIDERS: Internal Medicine; Nurse Practitioner Family; Admitting Provider Internal Medicine Adolescent Medicine; PCP Emergency Medicine; Visit Provider Internal Medicine Adolescent Medicine
PROC: 4A023N7 Measurement of Cardiac Sampling and Pressure, Left Heart, Percutaneous Approach (ICD-10-PCS; principal; 2023-02-22 04:30)
DX: I21.4 Non-ST elevation (NSTEMI) myocardial infarction (principal); I47.29 Other ventricular tachycardia; Q25.0 Patent ductus arteriosus; E78.5 Hyperlipidemia, unspecified; G43.909 Migraine, unspecified, not intractable, without status migrainosus; I25.10 Atherosclerotic heart disease of native coronary artery without angina pectoris; F31.9 Bipolar disorder, unspecified; F17.200 Nicotine dependence, unspecified, uncomplicated; G25.81 Restless legs syndrome; Z71.6 Tobacco abuse counseling; F41.9 Anxiety disorder, unspecified; D50.9 Iron deficiency anemia, unspecified
CPT/HCPCS: 36415; 71045; 80048; 80053; 80061; 81025; 82607; 82728; 82746; 83540; 83550; 83735; 84484; 85025; 85044; 93005; 93306; 93458; 99152; C1725; C1769; C9803; J0282; J1327; J1644; J1756; J7060; Q9967; U0003; U0005

== ENCOUNTER 2023-03-01 09:57 | Outpatient (RCR) | payer MEDICAID, SELFPAY | END 2023-03-28 15:00 | disposition home or self-care (01) | LOC: PT 09:57 | PROVIDERS: Visit Provider Internal Medicine | DX: I25.10 Atherosclerotic heart disease of native coronary artery without angina pectoris (principal) | CPT/HCPCS: 93798 ==

== ENCOUNTER → 2023-03-06 15:04 | Outpatient (CLI) | payer MEDICAID, SELFPAY | PROVIDERS: PCP Emergency Medicine; Visit Provider Nurse Practitioner | DX: R00.2 Palpitations (principal); I47.29 Other ventricular tachycardia | CPT/HCPCS: 93270 ==

== ENCOUNTER → 2023-04-14 13:57 | Outpatient (CLI) | payer MEDICAID, SELFPAY ==
[2023-04-14 14:57] LABS: Chloride 106 mmol/L (98-107); Potassium 3.1 mmoL/L (3.5-5.1); Sodium 143 mmol/L (136-145)
[2023-04-14 15:00] LABS: Anion Gap 15.1 mEq/L (5-15); Blood Urea Nitrogen 5 mg/dl (7-17); Carbon Dioxide 25 mmol/L (22.0-30.0); Estimated Glomerular Filt Rate 77 ml/min (>60); GFR (African American) 93 ML/MIN (>60)
[2023-04-14 15:01] LABS: Calcium 8.4 mg/dl (8.4-10.2); Glucose 68 mg/dl (74-100)
== END ==
PROVIDERS: PCP Internal Medicine Medical Oncology; Visit Provider Physician Assistant
DX: I25.10 Atherosclerotic heart disease of native coronary artery without angina pectoris (principal); I10 Essential (primary) hypertension; E78.5 Hyperlipidemia, unspecified
CPT/HCPCS: 36415; 80048

== ENCOUNTER 2023-05-08 13:09 | Outpatient (CLI) | payer MEDICAID, SELFPAY ==
[2023-05-08 14:06] LABS: Anion Gap 13.4 mEq/L (5-15); Blood Urea Nitrogen 5 mg/dl (7-17); Calcium 8.6 mg/dl (8.4-10.2); Carbon Dioxide 23 mmol/L (22.0-30.0); Chloride 109 mmol/L (98-107); Estimated Glomerular Filt Rate 90 ml/min (>60); GFR (African American) 109 ML/MIN (>60); Glucose 96 mg/dl (74-100); Potassium 3.4 mmoL/L (3.5-5.1); Sodium 142 mmol/L (136-145)
[2023-05-08 14:18] VITALS: BMI 27.4
--- NOTE | 2023-05-08 14:51 | PC.NURSE ---
1435 Patient her for labs only. CBC, Iron & TIBC, ferritin labs collected per L hand with butterfly needle. Patient tolerated well. Results pending.
[2023-05-08 15:12] LABS: Basophils % 0.5 % (0.1-2.0); Eosinophils # 0.2 K/mm3 (0.0-0.4); Eosinophils % 2.5 % (0.1-12.0); Hematocrit 32.6 % (37.0-47.0); Hemoglobin 9.8 g/dL (12.2-16.2); Lymphocytes # 2.1 K/mm3 (0.7-4.5); Mean Corpuscular HGB Conc 30.2 g/dL (31.8-35.4); Mean Corpuscular Hemoglobin 25.2 pg (27.0-31.2); Mean Corpuscular Volume 83.3 fl (81-99); Mean Platelet Volume 11.3 fl (7.4-10.4); Monocytes # 0.3 K/mm3 (0.1-1.0); Monocytes % 3.8 % (1.7-9.3); Neutrophils # 4.7 K/mm3 (1.8-7.8); Neutrophils % 64.2 % (37.0-80.0); Platelet Count 207 K/mm3 (142-424); Red Blood Count 3.91 M/mm3 (4.20-5.40); White Blood Count 7.3 K/mm3 (4.8-10.8)
[2023-05-08 15:14] LABS: Iron 34 ug/dL (37-170)
[2023-05-08 15:24] LABS: Total Iron Binding Capacity 407 ug/dL (265-497)
[2023-05-08 15:51] LABS: Ferritin 7.28 ng/ml (6.24-137)
== END 2023-05-08 14:40 | disposition home or self-care (01) ==
PROVIDERS: PCP Nurse Practitioner Family; Visit Provider Internal Medicine Medical Oncology
DX: E87.6 Hypokalemia (principal)
CPT/HCPCS: 36415; 80048; 82728; 83540; 83550; 85025

== ENCOUNTER 2023-05-16 11:20 | Outpatient (CLI) | payer MEDICAID, SELFPAY ==
[2023-05-16 11:31] VITALS: BP 108/59; PULSE 59; RESP 16; O2SAT 98
[2023-05-16 12:21] VITALS: BP 104/57; PULSE 59; RESP 16; O2SAT 98
--- NOTE | 2023-11-27 05:43 | PC.NURSE ---
medical records sent to [facility].
== END 2023-05-16 12:29 | disposition home or self-care (01) ==
LOC: INF 11:21
PROVIDERS: Visit Provider Internal Medicine Medical Oncology
DX: D50.9 Iron deficiency anemia, unspecified (principal)
CPT/HCPCS: 96365; J1756

== ENCOUNTER 2023-06-21 11:40 | Outpatient (CLI) | payer MEDICAID, SELFPAY ==
[2023-06-21 11:52] VITALS: BP 121/64; PULSE 74; RESP 18; TEMP 36; O2SAT 98
[2023-06-21 12:30] VITALS: BP 90/54; PULSE 68; RESP 18; O2SAT 99
== END 2023-06-21 12:30 | disposition home or self-care (01) ==
PROVIDERS: PCP Internal Medicine Medical Oncology; Visit Provider Internal Medicine Medical Oncology
DX: D50.9 Iron deficiency anemia, unspecified (principal)
CPT/HCPCS: 96365; J1756

== ENCOUNTER 2023-06-28 11:53 | Outpatient (CLI) | payer MEDICAID, SELFPAY ==
[2023-06-28 13:01] VITALS: BP 91/49; PULSE 60; RESP 18; O2SAT 99
[2023-06-28 13:30] VITALS: BP 94/71; PULSE 68; RESP 18; TEMP 36.6; O2SAT 99
== END 2023-06-28 13:01 | disposition home or self-care (01) ==
LOC: INF 11:54
PROVIDERS: PCP Emergency Medicine; Visit Provider Internal Medicine Medical Oncology
DX: D50.9 Iron deficiency anemia, unspecified (principal)
CPT/HCPCS: 96365; J1756

== ENCOUNTER → 2023-08-08 11:45 | Outpatient (CLI) | payer MEDICAID, SELFPAY ==
[2023-08-08 12:23] LABS: Basophils % 0.3 % (0.1-2.0); Eosinophils # 0.1 K/mm3 (0.0-0.4); Eosinophils % 0.8 % (0.1-12.0); Hematocrit 42.5 % (37.0-47.0); Hemoglobin 13.9 g/dL (12.2-16.2); Lymphocytes # 1.9 K/mm3 (0.7-4.5); Lymphocytes % 11.3 % (10-50); Mean Corpuscular HGB Conc 32.7 g/dL (31.8-35.4); Mean Corpuscular Hemoglobin 32.1 pg (27.0-31.2); Mean Corpuscular Volume 98.3 fl (81-99); Mean Platelet Volume 10.3 fl (7.4-10.4); Monocytes # 0.6 K/mm3 (0.1-1.0); Monocytes % 3.3 % (1.7-9.3); Neutrophils # 14.2 K/mm3 (1.8-7.8); Neutrophils % 84.4 % (37.0-80.0); Platelet Count 240 K/mm3 (142-424); Red Blood Count 4.32 M/mm3 (4.20-5.40); Red Cell Distribution Width 18.5 % (11.5-17.5); White Blood Count 16.8 K/mm3 (4.8-10.8)
[2023-08-08 12:33] LABS: MANUAL DIFFERENTIAL MANUAL DIFFERENTIAL (MANUAL DIFF)
[2023-08-08 12:59] LABS: Iron 107 ug/dL (37-170)
[2023-08-08 13:25] LABS: Total Iron Binding Capacity 370 ug/dL (265-497)
[2023-08-08 14:38] LABS: Eosinophils % 1 % (0-3); Lymphocytes % 21 % (10-50); Monocytes % 2 % (2-9); Neutrophils % 76 % (42-76); Platelet Estimate Normal; RBC Morphology Normal; Total Cells Counted 100
[2023-08-08 15:25] LABS: Vitamin B12 693 pg/mL (239-931)
== END ==
PROVIDERS: PCP Emergency Medicine; Visit Provider Physician Assistant
DX: D64.9 Anemia, unspecified (principal); E78.5 Hyperlipidemia, unspecified; I10 Essential (primary) hypertension; I21.4 Non-ST elevation (NSTEMI) myocardial infarction; I24.0 Acute coronary thrombosis not resulting in myocardial infarction
CPT/HCPCS: 36415; 82607; 83540; 83550; 85007; 85025

== ENCOUNTER 2025-03-04 14:25 | Outpatient (CLI) | payer MEDICAID, SELFPAY ==
[2025-03-04 15:17] LABS: Basophils # 0.1 K/mm3 (0-0.2); Eosinophils # 0.3 Kmm3 (0.0-0.4); Eosinophils % 3.1 % (0.1-12.0); Hematocrit 42.6 % (37.0-47.0); Hemoglobin 13.7 g/dL (12.2-16.2); Immature Granulocytes # 0.01 10^3uL; Immature Granulocytes % 0.1 %; Lymphocytes # 3.4 K/mm3 (0.7-4.5); Lymphocytes % 42.5 % (10-50); Mean Corpuscular HGB Conc 32.2 g/dL (31.8-35.4); Mean Corpuscular Hemoglobin 31.2 pg (27.0-31.2); Mean Platelet Volume 12.5 fl (7.4-10.4); Monocytes # 0.4 K/mm3 (0.1-1.0); Monocytes % 5.5 % (1.7-9.3); Neutrophils # 3.8 K/mm3 (1.8-7.8); Neutrophils % 47.8 % (37.0-80.0); Nucleated Red Blood Cells # 0 10^3/uL; Nucleated Red Blood Cells % 0 %; Platelet Count 229 K/mm3 (142-424); Red Blood Count 4.39 M/mm3 (4.20-5.40); Red Cell Distribution Width 14.4 % (11.5-17.5); Red Cell Distribution Width-SD 51.8 fL
[2025-03-04 16:03] LABS: Albumin Level 4.6 g/dl (3.5-5.0); Chloride 110 mmol/L (98-107); Potassium 3.4 mmoL/L (3.5-5.1); Sodium 143 mmol/L (136-145)
[2025-03-04 16:05] LABS: Bilirubin,Unconjugated 0.2 mg/dL (0.0-1.1); Blood Urea Nitrogen 4 mg/dl (7-17); Carbon Dioxide 26 mmol/L (22.0-30.0); Estimated Glomerular Filt Rate 89 ml/min (>60); GFR (African American) 108 ML/MIN (>60)
[2025-03-04 16:06] LABS: Alanine Aminotransferase 9 U/L (12-78); Alkaline Phosphatase 110 U/L (38-126); Anion Gap 10.4 mEq/L (5-15); Aspartate Amino Transferase 18 U/L (14-36); Bilirubin,Direct 0.1 mg/dl (0.0-0.4); Bilirubin,Indirect 0.2 mg/dL (0.0-0.9); Bilirubin,Total 0.3 mg/dl (0.2-1.3); Calcium 9.2 mg/dl (8.4-10.2); Chol/HDL Ratio 5.4 (1-3.5); Cholesterol 215 mg/dl (140-200); Glucose 64 mg/dl (74-100); HDL Cholesterol 40 mg/dl (40-60); Total Protein,Serum 7.1 g/dl (6.3-8.2); Triglycerides 256 mg/dl (30-150); VLDL Cholesterol 51 mg/dL (0-40)
[2025-03-04 16:17] LABS: Direct LDL Cholesterol 129.01 mg/dL (100-129)
== END 2025-03-04 23:59 | disposition home or self-care (01) ==
LOC: LAB 14:26
PROVIDERS: PCP Emergency Medicine; Visit Provider Nurse Practitioner
DX: E78.5 Hyperlipidemia, unspecified (principal); I10 Essential (primary) hypertension; E87.6 Hypokalemia; I25.10 Atherosclerotic heart disease of native coronary artery without angina pectoris; F17.200 Nicotine dependence, unspecified, uncomplicated
CPT/HCPCS: 36415; 80048; 80061; 80076; 85025

== ENCOUNTER 2025-05-14 12:59 | Outpatient (CLI) | payer MEDICAID, SELFPAY ==
--- NOTE | 2025-05-14 13:00 | CA_ITS ---
APPROVED REPORT EXAM: Comprehensive 2D, Doppler, and color-flow Echocardiogram [employer] Services Manager: Nancy Freedman RT(R) Ht: 5 ft 4 in Wt: 155lbs BSA: 1.76 BP: 127/70 mmHg Indications: chest pain, CAD 2D Dimensions LA Volume 12.60 mL LA Volume Index 7.16 mL/m2 (M/F) 16-34 EF AP4 54.80 % GL Strain -18.5 % M-Mode Dimensions RVDd 1.74 cm (0.9-2.6) LA Diam 2.72 cm (1.9-4.0) LVDd 4.93 cm (3.5-5.7) LVDs 3.62 cm (3.5-5.7) IVSd 0.50 cm (0.6-1.1) PWd 0.67 cm (0.6-1.1) EF (Teich) 51.70% FS 26.60% EDV (Teich) 114.40 mL TAPSE 1.61 (<1.7) ESV (Teich) 55.20 mL LV Diastology E Decel Time 237 (160-240 msec) E/A Ratio 1.2 Mitral Valve MV E Max Fermin. 90.0 (40-130 cm/s) MV A Velocity 76.0 (40-130 cm/s) E/A Ratio 1.19 MV PHT 69.0 ms Tricuspid Valve TR P. Velocity 212.00 cm/s Left Ventricle The left ventricle is normal size. The left ventricular systolic function is normal. The left ventricular ejection fraction is within the normal range. There is normal left ventricular wall thickness. There is normal LV segmental wall motion. The left ventricular diastolic function is normal. LVEF is 55%. Right Ventricle The right ventricle is normal size. The right ventricular systolic function is normal. Atria The left atrium size is normal. The right atrium size is normal. There is no Doppler evidence of interatrial shunt. Aortic Valve Aortic valve opens well. There is no aortic valvular stenosis. Mild aortic regurgitation. Mitral Valve The mitral valve is normal in structure. No evidence of mitral valve stenosis. Trace mitral regurgitation. Tricuspid Valve Tricuspid valve is grossly normal in structure and function. Trace tricuspid regurgitation. There is insufficient TR jet to estimate RVSP. Pulmonic Valve The pulmonary valve is normal in structure. Trace pulmonic regurgitation. Great Vessels The aortic root is normal in size. IVC is normal in size and collapses >50% with inspiration. Pericardium There is no pericardial effusion. Other Information Study Quality: Fair Conclusion Normal biventricular systolic function. Mild AI. Electronically signed by : Pamela Stokes MD 05/18/2025 19:04:45
--- OUTSIDE RECORDS SUMMARY | 2025-05-14 13:06 | XMS_ITS | Continuity of Care Document ---
Author Organization [facility] Address [address] [place] [address] Care Team Providers Care Lithograph Designer Name Role Phone HANSA JUSTIN Sheet Metal Layout Mechanic VICTORIANO BRADSHAW Primary Care Provider VICTORIANO BRADSHAW Referring Provider Assessment Encounter Date Assessment Date Assessment LastModified by Organization Details LastModified Time 04/01/2025 04/01/2025 Evaluation and examination. Reviewed PMH. Discussed podiatric pathology including treatment options with the patient at length. Reviewed referring provider's notes. [email or web address] Not available 04/01/2025 17:55:58 Plan of Treatment Reminders Order Date Submit Date Provider Last Modified By Organization Details Last Modified Time Details Appointments OV EST 30 025 03:15PM Yolanda Flannery DPM Not available Not available Not available Lab None record ed. Referral None record ed. Procedures None record ed. Surgeries None record ed. Imaging None record ed. Medication Orders None record ed. Patient TargetsNo targets recorded. Patient Instructions Encounter Date Encounter Id Patient Instructions Last Modified By Organization Details Last Modified Time 04/01/2025 [id number] Follow up 2-3 weeks Not available 04/01/2025 11:26:50 Some of the information in this note was entered by the HOMERO under the direction and training of the attending physician. I have reviewed the documentation of the encounter entered by the SEMICONDUCTOR ASSEMBLER and attest that it is accurate. M*Modal manager pacu software was utilized to enter some information in this note and therefore may contain voice recognition errors. Intake and other documentation entered by Kamila Martinez CMA. Not available 04/01/2025 11:10:19 Reason for Referral None Reported. Results Created Date Observation Date Name Description Value Unit Range Abnormal Flag Note LastModifiedBy Organization Detail LastModifiedTime Result Notes None recorded. Problems Name Problem SNOMED Code Status Onset Date Resolution Date Notes Provider Name and Address Organization Details Recorded Time Migraine 79029675 Active 2022 Marilee Pardini null, [place] [facility] [place] & [place] 3 15:10:36 Bipolar disorder 41403034 Active 2022 Marilee Pard[place] [facility] [place] 3 15:10:46 Gastroesop hageal reflux disease 845304806 Active 2022 Marilee Pard[place] [facility] [place] 3 15:10:52 Insomnia 305037219 Active 2022 Marilee [place] [place] 3 15:11:02 Mood disorder 61960357 Active 2022 Marilee [place] 3 15:11:20 Disorder of vitamin B12 729778824 Active 2022 Marilee Pard[place] null[place] [facility] [place] 3 15:11:30 Anxiety disorder 449400007 Active 2022 Marilee Pard[place] [facility] [place] 3 15:11:41 Hyperlipid emia 63979201 Active 2022 Victoriano Bradshaw MD [address] [place] [address], [address] , [place] [facility] [place] & [place] 3 15:27:08 Myocardial infarction 40297443 Active 2022 Marilee [place] [facility] [place] 3 10:55:48 Iron deficiency anemia 91742175 Active 2022 Patrick Alonzo null[place] [facility] [place] 4 09:29:37 Chronic idiopathic constipati on 88833200 Active 2022 Patrick caraballo, [place] [facility] [place] 4 09:29:33 Nausea and vomiting 08713665 Active 2022 Hansa Justin NP [address], [address], [place], [address] , [place] [facility] [place] 3 13:05:37 Mass of right breast [id number] 9106 Active 2023 Victoriano Bradshaw MD [address] [facility], [place], [address] , [place] [facility] [place] 4 22:07:22 Problem Notes None recorded. Procedures Surgical History Date Name Laterality Status Provider Name and Address Organization Details Recorded Time 04/21 Cantharidin Treatment completed Laurie OLIVERA - [facility] - [place] & [place] 5 15:49:37 04/01 Cantharidin Treatment completed Laurie OLIVERA - [facility] - [place] & [place] 5 11:26:15 11/04 excision completed Caren OLIVERA - [facility] - [place] & [place] 5 14:53:46 08/16 Wound Care completed Victoriano Bradshaw MD [address] [facility], [place], [address] , [place] [facility] [place] & [place] 4 11:25:30 11/08 EGD completed Nilsa OLIVERA - [facility] - [place] & [place] 4 14:19:13 11/08 Colonoscopy completed Nilsa OLIVERA - [facility] - [place] & [place] 4 14:21:09 02/22 catheterization of left heart completed Angeline OLIVERA - [facility] - [place] & [place] 3 16:00:24 02/17 Most Recent Mammogram completed Angeline OLIVERA - [facility] - [place] & [place] 3 16:21:04 12/26 Date of Last Pap Smear completed Angeline REDDING [facility] & [place] 3 16:06:07 09/20 laparoscopic cholecystectomy completed Marilee REDDING [facility] & [place] 3 15:17:19 09/06 Date of Last Colonoscopy completed Angeline REDDING [facility] & [place] 3 16:21:19 09/06 Colonoscopy completed Angeline REDDING [facility] & [place] 3 16:02:01 09/06 esophag[facility]ast[facility]oden[facility] [place] 3 16:02:32 10/23 ligation of fallopian tube completed Ting REDDING [facility] & [place] 3 15:12:35 10/23 extraction of wisdom tooth completed Ting REDDING [facility] & [place] 3 15:12:48 Imaging Results None recorded. Procedure Notes None recorded. Medical Equipment None Reported. Allergies No known drug allergies Medications Name Sig Start Date Stop Date Status Note LastModified by Organization Details LastModified Time BD Luer-Dawood Syringe 3 mL 23 x 1 USE TO INJECT B12 active Not Available Not Available No t Available hydroxyzine pamoate 100 mg capsule Take 1 capsule every day by oral route as needed. 07/07 completed Not Available Not Available Not Available amoxicillin 500 mg capsule TAKE 1 CAPSULE BY MOUTH EVERFY 8 HOURS FOR 10 DAYS 01/14 completed Not Available Not Available Not Available atorvastati n 40 mg tablet Take 1 tablet every day by oral route. 03/02 completed Not Available Not Available Not Available buspirone 5 mg tablet TAKE 1 TABLET BY MOUTH THREE TIMES DAILY 12/05 completed Not Available Not Available Not Available lamotrigine 150 mg tablet TAKE 1 TABLET BY MOUTH ONCE DAILY 03/02 completed Not Available Not Available Not Available atorvastati n 80 mg tablet TAKE 1 TABLET BY MOUTH EVERY DAY active Not Available Not Available No t Available potassium chloride ER 10 mEq capsule,ext ended release active Not Available Not Available Not Available clindamycin HCl 300 mg capsule 03/02 completed Not Available Not Available Not Available azithromyci n 250 mg tablet TAKE 2 TABLETS BY MOUTH ON DAY ONE, THEN TAKE 1 TABLET BY MOUTH DAILY FOR 4 DAYS 12/05 completed Not Available Not Available Not Available ibuprofen 800 mg tablet 10/25 completed Not Available Not Available Not Available alprazolam 1 mg tablet TAKE 1 TABLET BY MOUTH 1 HOUR BEFORE SURGERY 03/07 completed Not Available Not Available Not Available clarithromy annetta 500 mg tablet Take 2 tablets every 12 hours by oral route for 14 days. 01/14 completed Not Available Not Available Not Available hydrocodone 5 mg-acetamin ophen 325 mg tablet TAKE 1 TABLET BY MOUTH EVERY 4 HOURS NEEDED FOR PAIN active Not Available Not Available No t Available ondansetron HCl 8 mg tablet TAKE 1 TABLET BY MOUTH TWICE A DAY 04/29 completed Not Available Not Available Not Available ondansetron HCl 4 mg tablet TAKE 1 TABLET BY MOUTH EVERY 4 TO 6 HOURS NEEDED active Not Available Not Available No t Available metoprolol succinate ER 100 mg tablet,exte nded release 24 hr TAKE 1 TABLET BY MOUTH EVERY DAY active Not Available Not Available No t Available venlafaxine ER 150 mg capsule,ext ended release 24 hr TAKE 1 CAPSULE BY MOUTH ONCE DAILY 12/05 completed Not Available Not Available Not Available hydroxyzine pamoate 50 mg capsule TAKE 2 CAPSULES BY MOUTH EVERY DAY NEEDED 10/25 completed Not Available Not Available Not Available potassium chloride ER 10 mEq tablet,exte nded release 03/30 completed Not Available Not Available Not Available sulfamethox azole 800 mg-trimetho prim 160 mg tablet TAKE 1 TABLET BY MOUTH EVERY 12 HOURS FOR 14 DAYS active Not Available Not Available No t Available amoxicillin 500 mg tablet Take 2 tablets twice a day by oral route for 14 days. 01/14 completed Not Available Not Available Not Available ondansetron 8 mg disintegrat ing tablet DISSOLVE 1 TABLET ON THE TONGUE TWICE DAILY 10/25 completed Not Available Not Available Not Available oxycodone-a cetaminophe n 5 mg-325 mg tablet 11/20 completed Not Available Not Available Not Available isosorbide mononitrate ER 60 mg tablet,exte nded release 24 hr 10/11 completed Not Available Not Available Not Available cephalexin 500 mg capsule Take 1 capsule twice a day by oral route for 7 days. 10/25 completed Not Available Not Available Not Available pantoprazol e 40 mg tablet,sharita yed release TAKE 1 TABLET BY MOUTH AT BEDTIME active Not Available Not Available No t Available cyanocobala min (vit B-12) 1,000 mcg/mL injection solution INJECT 1ML INTRAMUSC ULARLY ONCE MONTHLY active Not Available Not Available No t Available Gentle Laxative (bisacodyl) 5 mg tablet,sharita yed release Take 2 tablets by oral route for 1 day. 01/14 completed Not Available Not Available Not Available nitroglycer in 0.[address] 1 TABLET UNDER THE TONGUE EVERY 5 MINUES NEEDED FOR CHEST PAIN FOR UP TO 3 DOSES active Not Available Not Available No t Available gabapentin 300 mg capsule TAKE 1 CAPSULE BY MOUTH THREE TIMES DAILY active Not Available Not Available No t Available omeprazole 20 mg capsule,del ayed release Take 1 capsule every day by oral route. 03/02 completed Not Available Not Available Not Available aspirin 81 mg chewable tablet CHEW AND SWALLOW 1 TABLET BY MOUTH ONCE DAILY active Not Available Not Available No t Available lisinopril 5 mg tablet Take 1 mg every day by oral route for 30 days. 10/11 completed Not Available Not Available Not Available mupirocin 2 % topical ointment APPLY A SMALL AMOUNT TO THE AFFECTED AREA BY TOPICAL ROUTE 3 TIMES PER DAY 10/11 completed Not Available Not Available Not Available furosemide 20 mg tablet 03/30 completed Not Available Not Available Not Available zolpidem 10 mg tablet TAKE 1 TABLET BY MOUTH AT BEDTIME active Not Available Not Available No t Available methylpredn isolone 4 mg tablets in a dose pack TAKE DIRECTED ON PACKAGE INSTRUCTI ONS 12/05 completed Not Available Not Available Not Available fluticasone propionate 50 mcg/actuati on nasal spray,suspe nsion INSTILL 1 SPRAY IN EACH NOSTRIL EVERY DAY 04/29 completed Not Available Not Available Not Available sertraline 50 mg tablet TAKE 1 TABLET BY MOUTH EVERY DAY 03/07 completed Not Available Not Available Not Available amoxicillin 875 mg-sofya lopez clavulanate 125 mg tablet 01/14 completed Not Available Not Available Not Available buspirone 15 mg tablet TAKE 1/2 TABLET BY MOUTH THREE TIMES DAILY 03/30 completed Not Available Not Available Not Available Alcohol Prep Pads USE DIRECTED TO PREP SITE FOR B-12 INJECTION AND AIMOVIG active Not Available Not Available No t Available Lactobacill us acidophilus 1 billion cell tablet Take 1 tablet every day by oral route for 30 days. 2023 active Not Available Not Available Not Avai lable ranolazine ER 500 mg tablet,exte nded release,12 hr active Not Available Not Available Not Available varenicline tartrate 1 mg tablet 08/16 completed Not Available Not Available Not Available varenicline tartrate 0.5 mg (11)-1 mg (42) tablets in a dose pack 04/29 completed Not Available Not Available Not Available FeroSul 325 mg (65 mg iron) tablet TAKE 1 TABLET BY MOUTH DAILY 08/16 completed Not Available Not Available Not Available ClearLax 17 gram/dose oral powder Take 17 g by oral route for 2 days. 01/14 completed Not Available Not Available Not Available Brilinta 90 mg tablet TAKE 1 TABLET BY MOUTH TWICE DAILY 09/05 completed Not Available Not Available Not Available One Daily Multivitami n 400 mcg tablet TAKE 1 TABLET BY MOUTH EVERY DAY 12/05 completed Not Available Not Available Not Available Repatha SureClick 140 mg/mL subcutaneou s pen injector ADMINISTE R 1 ML UNDER THE SKIN EVERY 2 WEEKS active Not Available Not Available No t Available Vraylar 1.5 mg capsule TAKE 1 CAPSULE BY MOUTH EVERY DAY active Not Available Not Available No t Available Aimovig Autoinjecto r 70 mg/mL subcutaneou s auto-inject or INJECT 1 ML SUBCUTANE OUSLY ONCE EVERY MONTH active Not Available Not Available No t Available [facility] COVID-19 Antigen Rapid Home Test kit USE DIRECTED 08/16 completed Not Available Not Available Not Available Vitals None Recorded Social History Question Answer Notes LastModified by Organizat ion Details LastModified Time Tobacco Smoking Status Current Every Day Smoker Marilee Pardini null, [place] [facility] [place] & [place] 12/05/2022 15:12:20 Do You Have An Advance Directive? No Information not available 09/05/2024 Are You Blind Or Do You Have Difficulty Seeing? No Information not available 09/05/2024 What Is Your Level Of Caffeine Consumption? Occasional Information not available 12/05/2022 In The 14 Days Before Symptom Onset, Have You Had Close Contact With A Laboratory-confir med COVID-19 While That Case Was Ill? No Information not available 09/05/2024 In The 14 Days Before Symptom Onset, Have You Had Close Contact With A Person Who Is Under Investigation For COVID-19 While That Person Was Ill? No Information not available 09/05/2024 Have You Been To An Area Known To Be High Risk For COVID-19? No Information not available 09/05/2024 Are You Deaf Or Do You Have Serious Difficulty Hearing? No Information not available 09/05/2024 What Type Of Diet Are You Following? REGULAR Information not available 09/05/2024 Have You Processed Blood Or Body Fluids From An Ebola Virus Disease Patient Without Appropriate PPE? No Information not available 09/05/2024 Do You Reside In Or Have You Traveled To An Area Where Ebola Virus Transmission Is Active? No Information not available 09/05/2024 Have There Been Any Changes To Your Family Or Social Situation? No Information no t available 09/05/2024 What Is The Fluoride Status Of Your Home? Unknown Information not available 09/05/2024 Are There Any Guns Present In Your Home? No Information not available 09/05/2024 Have You Recently Or Are You Planning To Travel To An Area With Zika Virus? No Information not available 09/05/2024 Do You Use Insect Repellent Routinely? Yes Information not available 09/05/2024 Do You Feel Safe At Home? Yes Information not available 09/05/2024 Do You Have A Medical Power Of Swing Saw Operator? No Information not available 09/05/2024 What Was The Date Of Your Most Recent Tobacco Screening? 10/09/2024 [email or web address] Information not available 10/09/2024 What Is Your Current Pack Years? 20-29packyears Information not available 12/05/2022 Do You Have Any Pets? Yes Information not available 09/05/2024 What Is Your Relationship Status? Information not available 09/05/2024 Do You Use Your Seat Belt Or Car Seat Routinely? Yes Information not available 09/05/2024 Do You Have Smoke And Carbon Monoxide Detectors In Your Home? Yes Information not available 09/05/2024 Are You Passively Exposed To Smoke? No Information no t available 09/05/2024 How Much Tobacco Do You Smoke? 1 PPD Information not available 12/05/2022 Do You Use Sunscreen Routinely? Yes Information not available 09/05/2024 Has Tobacco Cessation Counseling Been Provided? Yes [email or web address] Information not available 10/09/2024 On What Date Was Tobacco Cessation Counseling Provided? 10/09/2024 [email or web address] Information not available 10/09/2024 Do You Have Difficulty Walking Or Climbing Stairs? No Information not available 09/05/2024 Are You Currently In School? No Information not available 09/05/2024 Sex: Unknown Functional Status Question Answer Note LastModified by Organizat ion Details LastModified Time Do you use any illicit or recreational drugs? No Information not available 12/05/2022 Do you or have you ever used any other forms of tobacco or nicotine? No Information not available 12/05/2022 What is your level of alcohol consumption? Occasional Information not available 12/05/2022 Are you currently employed? No Information not available 09/05/2024 Do you have transportation difficulties? No Information not available 09/05/2024 Are you able to walk? YESWOREST Information not available 09/05/2024 Do you have difficulty doing errands alone? No Information not available 09/05/2024 Are you able to care for yourself? Yes Information n ot available 09/05/2024 Do you have difficulty dressing or bathing? No Information not available 09/05/2024 What is your exercise level? Occasional Information not available 09/05/2024 Mental Status Question Answer Note LastModified by Organizat ion Details LastModified Time Do you feel stressed (tense, restless, nervous, or anxious, or unable to sleep at night)? [id number] Information not available 09/05/2024 Do you have difficulty concentrating, remembering or making decisions? No Information no t available 09/05/2024 Family History Relationship Description Onset Age of this Age Resolved Age Notes LastModified by Organization Details LastModified Time Mother Diabetes mellitus [email or web address] Not available 2022 16:03:47 Mother Hypertensive disorder [email or web address] Not available 2023 13:17:31 Father Family history of malignant neoplasm [email or web address] Not available 2022 16:03:59 Medical History Condition Response Hyperlipidemia Y Heart Disease Y Gynecological History Statement/Question Response Abnormal Pap N Date of Last Pap Smear 12/27/2019 Most Recent Mammogram 02/17/2021 Date of Last Colonoscopy 09/06/2017 Obstetrics History GPAL:G 0 P 0 0 0 0 Past Encounters Encounter ID Performer Location Encounter Start Date Encounter Closed Date Diagnosis/Indication Diagnosis SNOMED-CT Code Diagnosis ICD10 Code Diagnosis Note [id number] Victoriano Bradshaw MD [facility] [address] [place] [id number] 03/07/2025 09:47:02 03/07/2025 10:15:24 Hidradenitis suppurativa 99357156 L73.2 we have made a referral to dermatolog y. Plantar callosity 272172 005 L84 will refer patient to podiatry Coronary arteriosclerosis 81688120 I25.10 [id number] Yolanda Flannery DPM [facility] [address] [place] [address] [place] [id number] 04/01/2025 10:31:30 04/01/2025 11:31:05 Pain in left foot 2885143099 43690 M79.672 recommend more supportive shoes with ambulation Callosity 365058314 L84 L85.1 Discussed treatment options. Patient elects for cantharone treatment of painful lesion(s). Informed of potential skin irritation . Provided informatio n regarding post procedure care.Plan to order amlactin at follow up.Conside r custom orthotics pending progress Health Concerns Section Related Observation LastModified by Organization Detai ls LastModified Time None Recorded Concern Status LastModified by Organization Details LastModified Time None Recorded Payers Encounter Date Sequence Insurance Name Policy Number Policy Brock Covered Member ID Brock Member ID Guarantor Name 04/01/2025 1 [facility] (MEDICAID HMO) Radha Zurita [id number] Radha Zurita Notes Date Note Type Note Provider Name and Address Organization Details Recorded Time 04/01/2025 text/html Patient presents for treatment of painful callous on her left foot. She admits she has had calluses on her feet for a long time however this area became painful only a few months ago. She is tried corn remover pads with limited lasting success. She admits the area is very painful with direct palpation and ambulation. New patient referred by PCP Dr. Bradshaw. Yolanda Flannery DPM [address] [place] [address], [address], [place], [address], [facility] & [place] 04/01/2025 17:56:35 OBGyn Episode No OBEpisode recorded.
--- OUTSIDE RECORDS SUMMARY | 2025-05-14 13:06 | XMS_ITS | Clinical Summary ---
Author Organization [facility] ([place], [place], [place], [place]) Address [address] [place] [address] Care Team Providers Care Paid Search Marketing Strategist Name Role Phone Unavailable Primary Care Provider Unavailabl e Social History Tobacco Use Types Packs/Day Years Used Date Smoking Tobacco: Never Assessed Comments Unknown Sex and Gender Information Value Date Recorded Sex Assigned at Not on file Legal Sex Female 7:12 PM CDT Gender Identity Not on file Sexual Orientation Not on file Plan of Treatment Not on file
--- OUTSIDE RECORDS SUMMARY | 2025-05-14 13:06 | XMS_ITS | Clinical Summary ---
Author Organization Healthcare Address [address] [place] [address] Care Team Providers Care Manager Bilingual Name Role Phone Victoriano May MD Primary Care Provider [phone] Allergies No known active allergies Medications ASPIRIN 81 MG chewable tablet Chew 1 tablet (81 mg) 1 (one) time each day. 4 Active atorvastatin (Lipitor) 80 MG tablet 4 Active cariprazine (Vraylar) 1.5 MG capsule Take 1 capsule (1.5 mg) by mouth 1 (one) time each day. 4 Active Erenumab-aooe (Aimovig) 70 MG/ML solution auto-injector 4 Active ondansetron ODT (Zofran-ODT) 8 MG disintegrating tablet Take 1 tablet (8 mg) by mouth if needed. 4 Active pantoprazole (Protonix) 40 MG EC tablet Take 1 tablet (40 mg) by mouth 1 (one) time each day. 4 Active ranolazine (Ranexa) 500 MG 12 hr tablet Take 1 tablet (500 mg) by mouth 2 (two) times a day. 4 Active sertraline (Zoloft) 50 MG tablet Take 1 tablet (50 mg) by mouth 1 (one) time each day. 4 Active zolpidem (Ambien) 10 MG tablet Take 1 tablet (10 mg) by mouth at night if needed. 4 Active gabapentin (Neurontin) 100 MG capsule Take 1 capsule (100 mg) by mouth 3 (three) times a day. Active Cyanocobalamin (B-12 COMPLIANCE INJECTION IJ) Inject 1 mL as directed. Active potassium chloride CR (Klor-Con) 8 MEQ ER tablet Take 1 tablet (8 mEq) by mouth 1 (one) time each day. Do not crush, chew, or split. Active Hospital, Clinic, or Other Facility Administered Medication Ordered Dose Route Frequency Start Date End Date Status lidocaine-EPINEPHrine (Xylocaine W/EPI) 1 %-1:703259 injection 8 mLIndications:Abnormal finding on breast imaging 8 mL INFILTRATION Once 12/23/2024 Active Social History Tobacco Use Types Packs/Day Years Used Date Smoking Tobacco: Every Day Cigarettes Smokeless Tobacco: Never Tobacco Cessation:Ready to Q uit: Not Asked; Counseling Given: Not Answered Comments No Sex and Gender Information Value Date Recorded Sex Assigned at Female 11/20/2024 9:53 AM EST Legal Sex Female 11:02 AM EDT Gender Identity Not on file Sexual Orientation Not on file Plan of Treatment Health Maintenance Due Date Last Done Comments [facility]-Depression Screening 1975 [facility]-HIV Screening 1975 [facility]-Hepatitis C Screening 1975 [facility]-Infant/Child/Adol SDOH Screenings 1975 [id number] Vaccine (#1) 1980 [facility]- SDOH Screenings 1993 [facility]-Adult SDOH Screenings 1993 [facility]-DTaP,Tdap,and Td Vaccine s (1 - Tdap) 1994 [facility]-Hepatitis B Vaccines (1 of 3 - 19+ 3-dose series) 1994 [facility]-Pneumococcal Vaccine: Pediatrics (0 to 5 Years) and At-Risk Patients (6 to 49 Years) (1 of 2 - PCV) 1994 [facility]-Zoster Vaccines (1 of 2) 1994 [facility]-Pap Smear 1996 [facility]-Cervical Cancer Screening 2005 [facility]-HPV/Cotest 2005 CT Colonography 2020 Colonoscopy 2020 FIT-DNA 2020 FIT 2020 FOBT 2020 Sigmoidoscopy 2020 [facility]-Colorectal Cancer Screening 2020 [facility]-Influenza Vaccine (#1) 2025 HPV Vaccines Aged Out No longer eligi ble based on patient's age to complete this topic [facility]-HIB Vaccines Aged Out No longer e ligible based on patient's age to complete this topic [facility]-Hepatitis A Vaccines Aged Out No longer eligible based on patient's age to complete this topic [facility]-IPV Vaccines Aged Out No longer e ligible based on patient's age to complete this topic [facility]-Rotavirus Vaccines Aged Out No lo nger eligible based on patient's age to complete [place] [id number] [employer] Care Teams Manager Bilingual Relationship Specialty Start Date End Date Victoriano May MD [address] [place] [address] PCP - General 02/22/23
--- OUTSIDE RECORDS SUMMARY | 2025-05-14 13:06 | XMS_ITS | Encounter Summary ---
Author Organization Healthcare Address [address] [place] [address] Care Team Providers Care Branch Service Representative Name Role Phone Victoriano May MD Primary Care Provider [phone] Encounter Details Date Type Department Care Team (Late st Contact Info) Description 02/17/2021 Orders Only External Location [address] [place] [address] Provider, External Social History Tobacco Use Types Packs/Day Years Used Date Smoking Tobacco: Never Assessed Comments Unknown Sex and Gender Information Value Date Recorded Sex Assigned at Female 11/20/2024 9:53 AM EST Legal Sex Female 11:02 AM EDT Gender Identity Not on file Sexual Orientation Not on file documented as of this encounter Plan of Treatment Not on file documented as of this encounter Procedures Procedure Name Priority Date/Time Associated Diagnosis Comments MAMMOGRAPHY OUTSIDE IMAGES 02/17/2021 1:42 PM EDT documented in this encounter Results * MAMMOGRAPHY OUTSIDE IMAGES (02/17/2021 1:42 PM EDT) Anatomical Region Laterality Modality Breast Mammography 02/17/2021 1:42 PM EDT us External Provider IMG BI PROCEDURES Final Result documented in this encounter Visit Diagnoses Not on filedocumented in this encounter Care Teams Branch Service Representative Relationship Specialty Start Date End Date Victoriano May MD [address] [place] [address] PCP - General 02/22/23 documented as of this encounter
--- OUTSIDE RECORDS SUMMARY | 2025-05-14 13:06 | XMS_ITS | Encounter Summary ---
Author Organization Healthcare Address [address] [place] [address] Care Team Providers Care Jacquard Card Lacer Name Role Phone Victoriano May MD Primary Care Provider [phone] Encounter Details Date Type Department Care Team (Late st Contact Info) Description 01/10/2020 Orders Only External Location [address] [place] [address] Provider, External Social History Tobacco Use Types [...] Date/Time Associated Diagnosis Comments MAMMOGRAPHY OUTSIDE IMAGES 01/10/2020 3:29 PM EDT documented in this encounter Results * MAMMOGRAPHY OUTSIDE IMAGES (01/10/2020 3:29 PM EDT) Anatomical Region Laterality Modality Breast Mammography 01/10/2020 3:29 PM EDT us External Provider IMG BI PROCEDURES Final Result documented in this encounter Visit Diagnoses Not on filedocumented in this encounter Care Teams Jacquard Card Lacer Relationship Specialty Start Date End Date Victoriano May MD [address] [place] [address] PCP - General 02/22/23 documented as of this encounter
--- OUTSIDE RECORDS SUMMARY | 2025-05-14 13:06 | XMS_ITS | Continuity of Care Document ---
Author Organization [facility] Address [address] [place] [address] Care Team Providers Care Development And Planning Engineer Name Role Phone HANSA JUSTIN Portainer Operator VICTORIANO BRADSHAW Primary Care Provider [phone] VICTORIANO BRADSHAW Referring Provider [phone] Assessment Encounter Date Assessment Date Assessment LastModified by Organization Details LastModified Time 04/21/2025 04/21/2025 Evaluation and examination. Discussed podiatric pathology including treatment options with the patient at length. [email or web address] Not available 04/21/2025 16:33:55 Plan of Treatment Reminders Order Date Submit [...] Modified By Organization Details Last Modified Time 04/21/2025 [id number] Follow up 2-3 weeks Not available 04/21/2025 15:49:38 Some of the information in this note was entered by the [facility] under the direction and training of the attending physician. I have reviewed the documentation of the encounter entered by the CRYPTOLOGIC TECHNICIAN and attest that it is accurate. M*Modal chronometer adjuster software was utilized to enter some information in this note and therefore may contain voice recognition errors. Intake and other documentation entered by Kamila Martinez CMA. Not available 04/21/2025 15:49:38 Reason for Referral None Reported. Problems Name Problem SNOMED Code Status Onset Date Resolution Date Notes Provider Name and Address Organization Details Recorded Time Migraine 45176230 Active 2022 Marilee Pardini null, [place] - [facility] - [place] & [place] 3 15:10:36 Bipolar disorder 53753980 Active 2022 Marilee Pardini null, [place] [facility] [place] 3 15:10:46 Gastroesop hageal reflux disease 395676246 Active 2022 Marilee Pardini null, [place] [facility] [place] 3 15:10:52 Insomnia 440945738 Active 2022 Marilee Pard[place], [place] [place] 3 15:11:02 Mood disorder 47205409 Active 2022 Marilee Pardini null, [place] [place] 3 15:11:20 Disorder of vitamin B12 914141320 Active 2022 Marilee Pardini null, [place] [place] 3 15:11:30 Anxiety disorder 144603147 Active 2022 Marilee Pardini null, [place] [facility] [place] 3 15:11:41 Hyperlipid emia 58813283 Active 2022 Victoriano Bradshaw MD [address] [place] [address], [address] , [place] - [facility] [place] 3 15:27:08 Myocardial infarction 62804202 Active 2022 Marilee Pardini null, [place] [place] 3 10:55:48 Iron deficiency anemia 03261452 Active 2022 Patrick Alonzo null, [place] [place] 4 09:29:37 Chronic idiopathic constipati on 11691325 Active 2022 Patrick Alonzo null, [place] [place] 4 09:29:33 Nausea and vomiting 61653800 Active 2022 Hansa Justin NP [address], [address], [place], [address] , [place] [facility] [place] 3 13:05:37 Mass of right breast [id number] 9106 Active 2023 Victoriano Bradshaw MD [address] [place], [address] , [place] [facility] [place] 4 22:07:22 Problem Notes None recorded. Procedures Surgical History Date Name Laterality Status Provider Name and Address Organization Details Recorded Time 04/21 Cantharidin Treatment completed Laurie OLIVERA - [place] 5 15:49:37 04/01 Cantharidin Treatment completed Laurie OLIVERA - [facility] [place] 5 11:26:15 11/04 excision completed Caren OLIVERA - [place] [place] 5 14:53:46 08/16 Wound Care completed Victoriano Bradshaw MD [address] [place], [address] , [place] - [facility] [place] 4 11:25:30 11/08 EGD completed Nilsa OLIVERA - [place] 4 14:19:13 11/08 Colonoscopy completed Nilsa OLIVERA - [place] [place] 4 14:21:09 02/22 catheterization of left heart completed Angeline OLIVERA - [place] [place] 3 16:00:24 02/17 Most Recent Mammogram completed Angeline OLIVERA - [place] [place] 3 16:21:04 12/26 Date of Last Pap Smear completed Angeline OLIVERA - [place] [place] 3 16:06:07 09/20 laparoscopic cholecystectomy completed Marilee eParce [facility] & [place] 3 15:17:19 09/06 Date of Last Colonoscopy completed Angeline OLIVERA [facility] & [place] 3 16:21:19 09/06 Colonoscopy completed Angeline OLIVERA [facility] & [place] 3 16:02:01 09/06 esophagogastroduodenoscopy completed Jana OLIVERA [facility] & [place] 3 16:02:32 10/23 ligation of fallopian tube completed Ting OLIVERA [facility] & [place] 3 15:12:35 10/23 extraction of wisdom tooth completed SunshineDallin OLIVERA [facility] & [place] 3 15:12:48 Imaging Results None recorded. Procedure [...] Available Not Available Not Available amoxicillin 875 mg-potassiu m clavulanate 125 mg tablet 01/14 completed Not [...] Not Available Not Available No t Available [facility] COVID-19 Antigen Rapid Home Test kit USE DIRECTED 08/16 completed Not Available Not Available Not Available Vitals None Recorded Social History Question Answer Notes LastModified by Organizat ion Details LastModified Time Tobacco Smoking Status Current Every Day Smoker Marilee Cuadra null, [place] 12/05/2022 15:12:20 Do You Have An Advance [...] Do You Have A Medical Power Of Harm Reduction Worker? No Information not available 09/05/2024 What Was The Date Of Your Most Recent Tobacco Screening? 10/09/2024 [email or web address] Information not available 10/09/2024 What Is Your [...] Has Tobacco Cessation Counseling Been Provided? Yes [email or web address] Information not available 10/09/2024 On What Date Was Tobacco Cessation Counseling Provided? 10/09/2024 [email or web address] Information not available 10/09/2024 Do You Have [...] anxious, or unable to sleep at night)? [id number] Information not available 09/05/2024 Do you have [...] SNOMED-CT Code Diagnosis ICD10 Code Diagnosis Note [id number] Yolanda Flannery DPM [facility] [address] [place] [address],[address] [place] [address] 04/01/2025 10:31:30 04/01/2025 11:31:05 Pain in left foot [id number] 99666 M79.672 recommend more supportive shoes with ambulation Callosity 430421881 L84 L85.1 Discussed treatment options. Patient elects for cantharone treatment of painful lesion(s). Informed of potential skin irritation . Provided informatio n regarding post procedure care.Plan to order amlactin at follow up.Conside r custom orthotics pending progress [id number] RATNA Rice [facility] [address] [place] [address] 04/21/2025 15:30:03 04/21/2025 17:38:43 Pain in left foot 8229311482 70255 M79.672 Recommend more supportive shoes with ambulation - even in the home.Recom mend patient have his/her shoes stretched to accommodat e bony prominence s. Provided handout demonstrat ing recommende d device. This handout also provided informatio n regarding local shoe cobblers if prefer to have someone stretch the shoes for them and lists several shoe brand recommenda tions. Callosity 914801226 L84 L85.1 Discussed treatment options. Debrided lesion sub 5 to tolerance. Debridemen t limited even post applicatio n of topical lidocaine. Patient elects for repeat cantharone treatment of painful lesion(s). Informed of potential skin irritation . Provided informatio n regarding post procedure care.Consi angela addition of amlactin at follow up. Plantar fasciitis 20280524 003 M72.2 Dispensed handout regarding appropriat e stretching program for his/her condition. Instructed patient to perform without shoe gear at least twice daily. Also discussed benefit of anti-infla mmatories, ice massage and arch support. Health Concerns Section Related Observation LastModified by Organization Detai ls LastModified Time None Recorded Concern Status LastModified by Organization Details LastModified Time None Recorded Payers Encounter Date Sequence Insurance Name Policy Number Policy Brock Covered Member ID Brock Member ID Guarantor Name 04/21/[address] [facility] (MEDICAID HMO) Radha Zurita [id number] Radha Zurita Notes Date Note Type Note Provider Name and Address Organization Details Recorded Time 04/21/2025 text/html patient presents for follow-up of left foot pain. 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 She admits she tolerated the treatment well. She is unsure how much the treatment did. She did notice some skin peel from the site recently. She reports the area is still painful with direct palpation and ambulation. She is still wearing flip-flops today. She admits she is limited with close toed shoe gear due to painful tailor's bunions. Upon discussion, she also admits she has recently started experiencing pain in the arches near the heels after periods of rest- both feet. Denies associated injury. Yolanda Flannery, RATNA [address] [place] [address], [address], [place], [address], [facility] [place] 04/21/2025 16:35:59 OBGyn Episode No OBEpisode recorded.
--- OUTSIDE RECORDS SUMMARY | 2025-05-14 13:06 | XMS_ITS | Encounter Summary ---
Author Organization Healthcare Address [address] [place] [address] Care Team Providers Care Vertical Lathe Operator Name Role Phone Victoriano May MD Primary Care Provider [phone] Encounter Details Date Type Department Care Team (Late st Contact Info) Description 01/11/2023 Lab Requisition [facility] [address] [place] [address] Provider, External Encounter for general adult medical examination without abnormal findings Social History Tobacco Use Types Packs/Day Years [...] Procedure Name Priority Date/Time Associated Diagnosis Comments ADDITIONAL SUSCEPTIBILITIES AND/OR IDENTIFICATION Routine 01/09/2023 1:50 AM EDT Encounter for general adult medical examination without abnormal findings documented in this encounter Results * (ABNORMAL) Additional Susceptibilities and/or Identification (01/09/2023 1:50 AM EDT) Culture Prevotella bivia(A) 01/12/2023 1:43 PM EDT [facility] Comment:This isolate has bee n identified using the FDA Approved Education Elements [place] System Other Specimen from cyst / Unknown 01/09/2023 1:50 AM EDT 01/11/2023 11:04 AM EDT us External Provider LAB MICROBIOLOGY - GENERAL ORD ERABLES Final Result [facility] [address] [place] [address] documented in this encounter Visit Diagnoses Diagnosis Encounter for general adult medical examination without abnormal findings documented in this encounter Care Teams Vertical Lathe Operator Relationship Specialty Start Date End Date Victoriano May MD [address] [place] [address] PCP - General 02/22/23 documented as of this encounter
--- OUTSIDE RECORDS SUMMARY | 2025-05-14 13:07 | XMS_ITS | Referral Summary ---
Author Organization [employer] ([place], [place], [place], [place]) Address [address] [place] [address] Care Team Providers Care Food Editor Name Role Phone Unavailable Primary Care Provider [...]
--- OUTSIDE RECORDS SUMMARY | 2025-05-14 13:07 | XMS_ITS | Encounter Summary ---
Author Organization [employer] ([place], [place], [place], [place]) Address [address] [place] [address] Care Team Providers Care Secondary Art Teacher Name Role Phone Unavailable Primary Care Provider Unavailabl e Encounter Details Date Type Department Care Team (Late st Contact Info) Description 09/01/2020 Transcribed Document [facility] [address] [place] [address] Anton Aguilar MD [address] [place] [address] Social History Tobacco Use Types Packs/Day Years Used Date Smoking Tobacco: Never Assessed Comments Unknown Sex and Gender Information Value Date Recorded Sex Assigned at Not on file Legal Sex Female 7:12 PM CDT Gender Identity Not on file Sexual Orientation Not on file documented as of this encounter Miscellaneous Notes * Cerner Conversion Note - Anton Aguilar MD - 09/01/2020 1:32 PM EST DATE OF SERVICE: The patient underwent an exercise stress test according to the usual Sathish protocol. She exercised for a total of 6 minutes achieving a maximum workload of 7 METs, had no chest pain, and no EKG changes suggestive of ischemia. The patient had a proper hemodynamic response to exercise and achieved 92% of the maximal age predicted heart rate. IMPRESSION: 1. Appears to be within normal exercise stress test. 2. Fair functional capacity. /[id number] Anton Aguilar MD NMF/AQ / NMF / MODL /[id number] documented in this encounter Plan of Treatment Not on file documented as of this encounter Visit Diagnoses Not on filedocumented in this encounter
--- OUTSIDE RECORDS SUMMARY | 2025-05-14 13:07 | XMS_ITS | Data Portability ---
Author Organization [facility] [place] Address [address] [place] [address] Care Team Providers Care President Finance Company Name Role Phone HANSA JUSTIN Head Batcher VICTORIANO BRADSHAW Primary Care Provider VICTORIANO BRADSHAW Referring Provider Assessment Encounter Date Assessment Date Assessment LastModified by Organization Details LastModified Time 04/01/2025 04/01/2025 Evaluation and examination. Reviewed PMH. Discussed podiatric pathology including treatment options with the patient at length. Reviewed referring provider's notes. Not available 04/01/2025 17:55:58 04/21/2025 04/21/2025 Evaluation and examination. Discussed podiatric pathology including treatment options with the patient at length. Not available 04/21/2025 16:33:55 Plan of Treatment Reminders Order Date Submit Date Provider Last Modified By Organization Details Last Modified Time Details Appointments OV EST 30 2024 03:15P M Yolanda Flannery DPM Not available Not available Not available Lab drug screen, urine [email or web address] [place] [address] (Laboratory), [address] [place], [address], 12/02/2024 08:24:30 gabapenti n, quantitat misty, urine 2024 025 [facility] (Laboratory), [place], [address], 11/28/2024 05:11:53 Referral dermatolo gist referral 2024 025 [email or web address] Dermatology, [facility], [address] [place], [address], 04/04/2025 07:49:15 podiatris t referral 2024 025 [facility] Yolanda Flannery DP, [address] [place] [address] , [address], [place], [address], 04/01/2025 17:57:49 Procedures None recorded. Surgeries None recorded. Imaging None recorded. Medication Orders Bactrim DS 800 mg-160 mg tablet 2024 025 [facility] #[id number], [address], [place], [place], [id number], 03/07/2025 10:12:32 nitroglyc juanjose 0.4 mg sublingua l tablet 2024 025 [facility] #[id number], [address], [place], [place], [id number], 03/07/2025 10:14:27 gabapenti n 300 mg capsule 2024 025 [facility], [address], [place], [place], [id number], 11/25/2024 09:06:05 Patient TargetsNo targets recorded. Patient Instructions Encounter Date Encounter Id Patient Instructions Last Modified By Organization Details Last Modified Time 04/01/2025 [id number] Follow up 2-3 weeks Not available 04/01/2025 11:26:50 Some of the information in this note was entered by the [facility] under the direction and training of the attending physician. I have reviewed the documentation of the encounter entered by the DOT NET ARCHITECT and attest that it is accurate. M*Modal senior oracle soa developer software was utilized to enter some information in this note and therefore may contain voice recognition errors. Intake and other documentation entered by Kamila Martinez CMA. Not available 04/01/2025 11:10:19 04/21/2025 [id number] Follow up 2-3 weeks Not available 04/21/2025 15:49:38 Some of the information in this note was entered by the DOT NET ARCHITECT under the direction and training of the attending physician. I have reviewed the documentation of the encounter entered by the DOT NET ARCHITECT and attest that it is accurate. Mvaluescope senior oracle soa developer software was utilized to enter some information in this note and therefore may contain voice recognition errors. Intake and other documentation entered by Kamila Martinez CMA. Not available 04/21/2025 15:49:38 Reason for Referral [employer] Solution Architect Referral for H idradenitis suppurativa Referring Physician: [facility], Encounter Date: 03/07/2025 Wallpaper Printer Referral for Plan tar callosity Referring Physician: Victoriano Bradshaw [facility] Medicine, Encounter Date: 03/07/2025 Results Created Date Observation Date Name Description Value Unit Range Abnormal Flag Note LastModifiedBy Organization Detail LastModifiedTime 11/25/19 25 11/25/2024 URINE DRUG SCREE N - EXL MAX amphetamine/ metamphetami ne NEGATI VE negati ve Not Available [facility] (Lab Registration) [address] [place], [address], 11/25/2024 12:18:35 11/25/19 25 11/25/2024 URINE DRUG SCREE N - EXL MAX barbiturates NEGATI VE negati ve Not Available [facility] (Lab Registration) [address] [place], [address], 11/25/2024 12:18:35 11/25/19 25 11/25/2024 URINE DRUG SCREE N - EXL MAX benzodiazeph amara NEGATI VE negati ve Not Available [facility] (Lab Registration) [address] [place], [address], 11/25/2024 12:18:35 11/25/19 25 11/25/2024 URINE DRUG SCREE N - EXL MAX buprenophine NEGATI VE negati ve Not Available [facility] (Lab Registration) [address] [place], [address], 11/25/2024 12:18:35 11/25/19 25 11/25/2024 URINE DRUG SCREE N - EXL MAX cocaine metabolite NEGATI VE negati ve Not Available [facility] (Lab Registration) [address] [place], [address], 11/25/2024 12:18:35 11/25/19 25 11/25/2024 URINE DRUG SCREE N - EXL MAX methadone NEGATI VE negati ve Not Available [facility] (Lab Registration) [address] [place], [address], 11/25/2024 12:18:35 11/25/19 25 11/25/2024 URINE DRUG SCREE N - EXL MAX opiates NEGATI VE negati ve Not Available [facility] (Lab Registration) [address] [place], [address], 11/25/2024 12:18:35 11/25/19 25 11/25/2024 URINE DRUG SCREE N - EXL MAX oxycodone NEGATI VE negati ve Not Available [facility] (Lab Registration) [address] [place], [address], 11/25/2024 12:18:35 11/25/19 25 11/25/2024 URINE DRUG SCREE N - EXL MAX cannabinoids NEGATI VE negati ve Not Available [facility] (Lab Registration) [address] [place], [address], 11/25/2024 12:18:35 11/25/19 25 11/25/2024 URINE DRUG SCREE N - EXL MAX pcp NEGATI VE negati ve Not Available [facility] (Lab Registration) [address] [place], [address], 11/25/2024 12:18:35 11/25/19 25 11/25/2024 URINE DRUG SCREE N - EXL MAX fentanyl, urine NEGATI VE negati ve Not Available [facility] (Lab Registration) [address] , [place], [address], 11/25/2024 12:18:35 11/25/19 25 11/25/2024 URINE DRUG SCREE N - EXL MAX tricyclic antidepressa nts NEGATI VE negati ve Not Available [facility] (Lab Registration) [address] [place], [address], 11/25/2024 12:18:35 11/25/19 25 11/25/2024 URINE DRUG SCREE N - EXL MAX internal control PASS PASS Not Available [facility] (Lab Registration) [address] [place], [address], 11/25/2024 12:18:35 11/25/19 25 11/25/2024 URINE DRUG SCREE N - EXL MAX note Unles s other petty noted testi ng perfo rmed at: [facility] [address] [place] [address] [phone] Noel matt MD CLIA: [id number] Not Available [facility] (Lab Registration) [address], [place], [address], 11/25/2024 12:18:35 11/25/19 25 11/25/2024 GABAP ENTIN , URINE note Unles s other petty noted testi ng perfo rmed at: [facility] [address] [place] [address] [phone] Noel matt MD CLIA: [id number] Not Available [facility] (Lab Registration) [address] [place], [address], 11/28/2024 05:11:53 11/25/19 25 11/28/2024 GABAP ENTIN , URINE gabapentin, urine 606.0 ug/mL Perfo rmed at: [facility] [address] [place] [address] Lab Direc tor: Betty stephens [facility] , Phone : [phone] Not Available [facility] (Lab Registration) [address] [place], [address], 11/28/2024 05:11:53 11/07/19 25 11/07/2024 US, breas t, unila teral , limit ed [facility] [address] [place] [address] Phone: Fax: Name: POLA VILLANUEVA Exam Date: 025 : 975 Age 49 years Gender : F Access ion: [id number] Physic mike: GUILLERMO BRADSHAW NDE Facili ty: [facility] Facili ty HSV: Outpat ient Exam: US BREAST LIMITE D RT Exam: 1.Righ t Diagno stic Mammog ge with 2D and 3D (tomos ynthes is)marylou ging 2.Righ t Breast Ultras ound Clinic al indica tion: Recall upper centra l and upper outer right breast masses Compar rory: Exams to 2019 TECHNI QUE: Diagno stic Right 2D mammog sundeep and 3D (tomos ynthes is) imagin g were perfor med.Ta rgeted ultras ound assess ing berrios-s paola and color flow perfor med. BREAST DENSIT Y:The breast s are Extrem bill dense which lowers the sensit ivity of mammog sundeep FINDIN GS: Mammog sundeep: Persis tent masses seen in the right breast 12:00 and 9:00 positi on. The 12:00 mass is likely stable accoun ting for differ ences in techni que. Ultras ound: Right breast : 12:00, 3 cm from nipple , circum scribe d, parall el, hypoec hoic mass measur ing 13 x 10 x 16 mm 9:00, 9 cm from the nipple , circum scribe d, parall el, hypoec hoic mass measur ing 21 x 19 x 9 mm. IMPRES JEFFERSON: Probab ly benign right breast mass at the 12:00 and 9:00 positi ons. Recomm endati on: Right mammog ge with right ultras ound recomm ended in 6 months The result s of this report will be report ed to the patien t by letter in layman 's terms. ACR BI-RAD S:3 - Probab ly Benign Findin gs Mammog sundeep does not detect approx imatel y 10-15% of breast cancer s. A normal mammog ge does not exclud e breast cancer in a patien t with palpab le mass or abnorm al findin gs on physic al examin ation. These patien ts may need biopsi es and when clinic ally indica wanda a biopsy should not be postpo campos becaus e of a normal mammog ge. If the patien t has breast surger y or biopsy , FDA/ [place] Regula tory Guidel amara mandat e that this facili ty receiv e pathol ogic result s for follow -up correl ation. Electr onical ly signed by: Garcia Sarmiento MD 2024 10:08 AM EST RP Workst ation: [id number] Legall y authen ticate d by RIKI PULIDO MD 11-07 10:04: 53 Dictat ed By: Garcai Sarmiento Transc ribed By: Transc ribed On: 025 10:04 AM Electr onical ly signed by: Garcia Sarmiento 025 Thank you for referr ing RNIING S, POLA to [facility] Hospit al. Legall y authen ticate d by RIKI PULIDO MD 11-07 10:04: 53 CC'ed Logic: Orderi ng Provid er: AUGUSTINE LI NDE CC Provid er: AUGUSTINE LI NDE Attend ing Provid er: SOSUDHA NDIAYEATU NDE Referr ing Provid er: SOSUDHA VILLARREALU NDE Admitt ing Provid er: SOSUDHA LI NDE [facility] (Radiology) [address], [place], [address], 11/07/2024 10:42:47 0111/07/2024 MAMMO , scree alice, digit al, bilat eral [facility] [address] [place] [address] Phone: Fax: Name: POLA VILLANUEVA Exam Date: 025 : 9[birth year] Age 49 years Gender : F Access ion: [id number] Physic mike: GUILLERMO BRADSHAW NDE [facility]ili [facility] Facili ty HSV: Outpat ient Exam: JAY DIAG MAMMO W CAD RT Exam: 1.[facility] t Diagno stic Mammog ge with 2D and 3D (tomos ynthes is)marylou ging 2.Rig t Breast Ultras ound Clinic al indica tion: Recall upper centra l and upper outer right breast masses Compar rory: Exams to 2019 TECHNI QUE: Diagno stic Right 2D mammog sundeep and 3D (tomos ynthes is) imagin g were perfor med.Ta rgeted ultras ound assess ing berrios-s paola and color flow perfor med. BREAST DENSIT Y:The breast s are Extrem bill dense which lowers the sensit ivity of mammog sundeep FINDIN GS: Mammog sundeep: Persis tent masses seen in the right breast 12:00 and 9:00 positi on. The 12:00 mass is likely stable accoun ting for differ ences in techni que. Ultras ound: Right breast : 12:00, 3 cm from nipple , circum scribe d, parall el, hypoec hoic mass measur ing 13 x 10 x 16 mm 9:00, 9 cm from the nipple , circum scribe d, parall el, hypoec hoic mass measur ing 21 x 19 x 9 mm. IMPRES JEFFERSON: Probab ly benign right breast mass at the 12:00 and 9:00 positi ons. Recomm endati on: Right mammog ge with right ultras ound recomm ended in 6 months The result s of this report will be report ed to the breanna t by letter in layman 's terms. ACR BI-RAD S:3 - Probab ly Benign Findin gs Mammog sundeep does not detect approx imatel y 10-15% of breast cancer s. A normal mammog ge does not exclud e breast cancer in a patien t with palpab le mass or abnorm al findin gs on physic al examin ation. These patien ts may need biopsi es and when clinic ally indica wnada a biopsy should not be postpo campos becaus e of a normal mammog ge. If the patien t has breast surger y or biopsy , FDA/ [place] Regula tory Guidel amara mandat e that this facili ty receiv e pathol ogic result s for follow -up correl ation. Electr onical ly signed by: Garcia Sarmiento MD 2024 10:08 AM EST RP Workst ation: [id number] Legall y authen ticate d by RIKI PULIDO MD 11-07 09:51: 43 Dictat ed By: Garcia Sarmiento Transc ribed By: Transc ribed On: 025 9:51 AM Electr onical ly signed by: Garcia Sarmiento 025 Thank you for referr ing POLA VILLANUEVA to [facility]. Legall y authen ticate d by RIKI PULIDO MD 11-07 09:51: 43 CC'ed Logic: Orderi ng Provid er: SOMINESHN CHERELLEU NDE CC Provid er: SOMINESHN CHERELLEU NDE Attend ing Provid er: AUGUSTINE VILLARREALU NDE Referr ing Provid er: SOMINESHN ZELDAATU NDE Admitt ing Provid er: SOKAN BABATU NDE [facility] (Radiology) [address] , [place], [address], 01/31/2025 14:15:08 Result Notes None recorded. Problems Name Problem SNOMED Code Status Onset Date Resolution Date Notes Provider Name and Address Organization Details Recorded Time Migraine 23427501 Active 2022 JOSELIN Schmitt - [place] & [place] 3 15:10:36 Bipolar disorder 29161344 Active 2022 JOSELIN Schmitt - [place] & [place] 3 15:10:46 Gastroesop hageal reflux disease 569043025 Active 2022 Marilee Ramachandrandini null, [place] - [facility] - [place] & [place] 3 15:10:52 Insomnia 943202713 Active 2022 Marilee Pardini null, [place] - [place] - [place] & [place] 3 15:11:02 Mood disorder 67610880 Active 2022 Marilee Pardini null, [place] - [place] & [place] 3 15:11:20 Disorder of vitamin B12 153855499 Active 2022 Marilee Pardini null, [place] - [place] - [place] & [place] 3 15:11:30 Anxiety disorder 345625328 Active 2022 Marilee Pardini null, [place] - [facility] - [place] & [place] 3 15:11:41 Hyperlipid emia 35291800 Active 2022 Victoriano Bradshaw MD [address], [place], [address] , [place] - [facility] - y & [place] 3 15:27:08 Myocardial infarction 27758093 Active 2022 Marilee Duartedini null, [place] - [facility] - [place] & [place] 3 10:55:48 Iron deficiency anemia 50080683 Active 2022 Patrick Alonzo null, [place] - [facility] - [place] & [place] 4 09:29:37 Chronic idiopathic constipati on 11849358 Active 2022 Patrick Alonzo null, [place] - [place] - [place] & [place] 4 09:29:33 Nausea and vomiting 00067515 Active 2022 Hansa Justin NP [address], [address], [place], [address] , [place] - LP[facility] - y & [place] 3 13:05:37 Mass of right breast 4587188174616 9106 Active 2023 Victoriano Bradshaw MD [address], [place], [address] , [place] - [place] & [place] 4 22:07:22 Problem Notes None recorded. Procedures Surgical History Date Name Laterality Status Provider Name and Address Organization Details Recorded Time 04/21 Cantharidin Treatment completed Laurie Martinez [place] [facility] [place] 5 15:49:37 04/01 Cantharidin Treatment completed Laurie Martinez [place] - [place] - [place] & [place] 5 11:26:15 11/04 excision completed Caren Ojeda [place] - [facility] & [place] 5 14:53:46 08/16 Wound Care completed Victoriano Bradshaw MD [address] [place], [address] , [place] - [facility] & [place] 4 11:25:30 11/08 EGD completed Nilsa OLIVERA - LPNT - [place] & [place] 4 14:19:13 11/08 Colonoscopy completed Nilsa OLIVERA - [facility] [place] 4 14:21:09 02/22 catheterization of left heart completed Angeline Yeh [place] - [facility] - [place] & [place] 3 16:00:24 02/17 Most Recent Mammogram completed Angeline Kyleer [place] - [facility] - [facility] & [place] 3 16:21:04 12/26 Date of Last Pap Smear completed Angeline Kyleer [place] - [facility] & [place] 3 16:06:07 09/20 laparoscopic cholecystectomy completed Marilee OLIVERA - LP[facility] - [place] & [place] 3 15:17:19 09/06 Date of Last Colonoscopy completed Angeline Yeh [place] - [facility] - [place] & [place] 3 16:21:19 09/06 Colonoscopy completed Angeline OLIVERA - [facility] & [place] 3 16:02:01 09/06 esophagogastroduodenoscopy completed Jana OLIVERA - [facility] & [place] 3 16:02:32 10/23 ligation of fallopian tube completed SunshineDallin OLIVERA - LP[facility] & [place] 3 15:12:35 10/23 extraction of wisdom tooth completed Ting OLIVERA - [facility] & [place] 3 15:12:48 Imaging Results None recorded. Procedure [...] Not Available Not Available No t Available [facility] COVID-19 Antigen Rapid Home Test kit USE DIRECTED 08/16 completed Not Available Not Available Not Available Vitals Date Recorded Body height Body mass index (BMI) Body weight Heart rate Oxygen saturation Oxygen saturation in Arterial blood by Pulse oximetry Body temperature Systolic And Diastolic Provider Name and Address Organization Details Last Updated DateTime 5 170.18 cm 23 kg/m2 33486.3 6 g 87 /min 98 % 98 % 98.1 [degF] 142/88 mm[Hg] [facility] & [place] 5 14:50:50 Date Recorded Body height Body mass index (BMI) Body weight Body temperature Oxygen saturation Oxygen saturation in Arterial blood by Pulse oximetry Heart rate Respiratory rate Systolic And Diastolic Provider Name and Address Organization Details Last Updated DateTime 5 170.18 cm 22.2 kg/m2 57046.6 8 g 97.3 [degF] 99 % 99 % 79 /min 16 /min 136/79 mm[Hg] Marilee REDDING [facility] & [place] 5 08:59:50 Date Recorded Body height Body mass index (BMI) Body weight Body temperature Oxygen saturation Oxygen saturation in Arterial blood by Pulse oximetry Heart rate Respiratory rate Systolic And Diastolic Provider Name and Address Organization Details Last Updated DateTime 5 170.18 cm 23.8 kg/m2 02232.3 2 g 97.3 [degF] 98 % 98 % 57 /min 16 /min 126/77 mm[Hg] Marilee REDDING [facility] & [place] 5 09:59:53 Social History Question Answer Notes LastModified by Organizat ion Details LastModified Time Tobacco Smoking Status Current Every Day Smoker Marilee caraballo JOSELIN [facility] & [place] 12/05/2022 15:12:20 Do You Have An Advance [...] Do You Have A Medical Power Of Electronic Tester? No Information not available 09/05/2024 What Was The Date Of Your Most Recent Tobacco Screening? 10/09/2024 [email or web address] Information not available 10/09/2024 What Is Your [...] Has Tobacco Cessation Counseling Been Provided? Yes [email or web address] Information not available 10/09/2024 On What Date Was Tobacco Cessation Counseling Provided? 10/09/2024 [email or web address] Information not available 10/09/2024 Do You Have [...] anxious, or unable to sleep at night)? [id number] Information not available 09/05/2024 Do you have [...] SNOMED-CT Code Diagnosis ICD10 Code Diagnosis Note [id number] Victoriano Bradshaw MD [address] [address] 12/05/2022 14:50:37 12/05/2022 15:29:48 Abscess of skin and/or subcutaneous tissue 86744723 L02.91 WE HAVE APPLIED ANTIBIOTIC OINTMENT AND COVERED LESION. PATIENT IS ENCOURAGED TO USE WARM COMPRESSES . WILL PUT PATIENT ON ANTIBIOTIC S. SHE IS TO CONTINUE TO CHANGE DRESSING DAILY. IF WORSENING SHE IS TO RETURN TO CLINIC. Disorder o f vitamin B12 364384211 E53.8 Gastroesop hageal reflux disease 607921668 K21.9 WILL REFILL PATIENT'S PRESCRIPTI ON FOR OMEPRAZOLE . Hyperlipidemia 62299651 E78.5 Mood disorder 28140739 F 39 PATIENT IS BEING FOLLOWED BY PSYCHIATRY . Chronic pain 46118555 G8 9.29 Allergic rhinitis 902414 04 J30.9 [id number] Victoriano Bradshaw MD [address] [address] 03/02/2023 09:56:23 03/02/2023 10:53:12 Anxiety disorder 045364409 F41.9 Will add hydroxyzin e to patient's regimen. She is to continue with current therapy.I have also referred her for counseling . Disorder o f vitamin B12 398335746 E53.8 Patient continues with vitamin B12 supplement ation. Gastroesop hageal reflux disease 967329796 K21.9 Patient's omeprazole was changed to pantoprazo le by Cardiology . Hyperlipidemia 20123436 E78.5 Patient has been on atorvastat in however her dose has been increased by Cardiology . She is currently taking 80 mg a day. Tobacco de pendence syndrome 01159360 F17.200 we have had extensive discussion regarding smoking cessation. Patient currently smokes 10 cigarettes a day. She agrees to try to reduce that 5 a day. 5 MINS TOTAL [id number] Victoriano Bradshaw MD [address] [place] [address] 03/30/2023 10:34:57 03/30/2023 11:20:53 Long-term current use of drug therapy 874576879 Z79.899 WILL CHECK HER GABAPENTIN LEVELS TODAY. Anxiety disorder 0214950 06 F41.9 PATIENT TO CONTINUE WITH REGIMEN SHE IS CURRENTLY UNDERGOING COUNSELING . SHE REPORTS GOOD RESPONSE TO MEDICATION . [id number] ERWIN ARIZA Therapeut ic Intervent ions [place] [address] [place] [id number] 03/15/2023 10:26:40 03/15/2023 11:15:48 [id number] Victoriano Bradshaw MD [address] [place] [address] 06/29/2023 09:21:16 06/29/2023 10:03:53 Tobacco dependence caused by cigarettes 5564015088 4658419 F17.210 Iron defic iency anemia 73463204 D50.9 Will check fecal occult blood. Patient is currently getting iron infusions due to iron deficiency . Fatigue 28490286 R53.83 will check patient's TSH. Hyperlipidemia 75027996 E78.5 Patient has been on atorvastat in however her dose has been increased by Cardiology . She is currently taking 80 mg a day. She is complainin g of muscle aches in both lower extremitie s. I have instructed her to hold her atorvastat in for a week. [id number] Victoriano Bradshaw [place] [address] [place] [address] 07/07/2023 11:45:10 07/07/2023 12:18:44 Fatigue 05766814 R53.83 Patient to hold off her metoprolol and her lisinopril she will call her cardiologi st Dr Beck Hyperlipidemia 86141032 E78.5 no change in muscle aches with holding the atorvastat in she has been advised to resume her 80 mg of atorvastat in a day. [id number] Hansa Justin NP [facility] [address] [place] [address] [place] [address] 08/22/2023 10:46:44 08/22/2023 13:40:33 Iron deficiency anemia 12136464 D50.9 Currently received 4 iron infusions. She continues Brilinta due to [place] 02/2023. She continues to follow with Cardiology , Dr. Beck. Labs reviewed 06/29/23 HGB 11.8, GCT 37.7, MCV 90.6, ferritin 262, iron 293. Positive hemoccult. She does continue to have regular menstrual cycles. Denies hematochez ia. Case was discussed with Dr. Terrell personally . She will need to follow up with Cardiology and cardiac clearance will need to be obtained prior to scheduling due to recent cardiac history. Chronic id iopathic constipation 73184741 K59.04 failed treatment with OTC medication s. Recommend trial of Linzess 72 mcg, 145 mcg, and 290 mcg. Samples 8 days each provided to patient in clinic today. Will send Rx based on response to sample medication . Nausea and vomiting 1692 1999 R11.2 daily episodes, improves with use of Zofran. Will evaluate further with EGD as above. [id number] Victoriano Bradshaw MD [address] [place] [address] 01/15/2024 11:26:17 01/15/2024 12:04:08 Fatigue 05462372 R53.83 patient has a history of iron-defic iency anemia. Will obtain lab work today. Disorder o f vitamin B12 252210730 E53.8 Patient continues with vitamin B12 supplement ation. Will check labs today. Hyperlipidemia 68906099 E78.5 Patient is currently on atorvastat in. Will check labs today. [id number] Victoriano Bradshaw MD [address] [place] [address] 04/29/2024 10:19:32 04/29/2024 10:56:01 Screening mammography of bilateral breasts 5207104102 90564 Z12.31 Long-term current use of drug therapy 123132290 Z79.899 Iron defic iency anemia 95785724 D50.9 will check levels today. Folic acid deficiency 19 6721197 E53.8 will recheck levels today. Anxiety [id number] F41.9 [id number] Victoriano Bradshaw MD [address] [place] [address] 09/05/2024 08:59:08 09/05/2024 09:27:50 Screening mammography of bilateral breasts [id number] 51790 Z12.31 Adult heal th examination [id number] Z00.00 PATIENT PRESENTS FOR ANNUAL WELLNESS EXAM. EXAMINATIO N APPEARS TO BE BENIGN. WILL OBTAIN LAB WORK AND CALL PATIENT WITH RESULTS. Disorder o f vitamin B12 [id number] E53.8 Patient continues with vitamin B12 supplement ation. Will check labs today. Hyperlipidemia 06130625 E78.5 Patient is currently on atorvastat in. Will check labs today. Iron defic iency anemia 47559597 D50.9 PATIENT TO CONTINUE WITH SUPPLEMENT ATION FOR NOW. Diabetes m ellitus screening [id number] Z13.1 Thyroid di sorder screening 993916050 Z13.29 WILL CHECK LEVELS TODAY. Vitamin deficiency 96001 002 E56.9 [id number] Victoriano Bradshaw MD [address] [place] [address] 08/16/2024 10:52:10 08/16/2024 11:18:42 Abscess of skin and/or subcutaneous tissue 96523425 L02.91 packing has been removed and replaced with half-inch plain packing. Patient tolerated procedure well. Wound was dressed with antibiotic ointment. Patient has been advised to return in 4 days for a recheck. [id number] Victoriano Bradshaw MD [address] [place] [address] 08/22/2024 10:20:41 08/22/2024 10:52:54 Abscess of skin and/or subcutaneous tissue 55673969 L02.91 this appears to be healing satisfacto rily. Patient has been advised to complete her course of antibiotic s. Iron defic iency anemia 37449279 D50.9 will check levels today.We have spent 30 minutes discussing causes of iron-defic iency anemia. Patient has been advised to continue to take her iron sulfate. We may have to adjust her dosing depending on results of lab tests. [id number] LISBET CARRERO NP [address] [place] [address] 10/09/2024 09:31:12 10/09/2024 10:51:56 Gynecologic examination 38850131 Z01.419 Localized infection of skin AND/OR subcutaneous tissue 242071366 L08.9 indurated; would not benefit from I&D today, does have a small opening that is natural that drainage could come out of, needs to use warm compresses , discussed chlorhexid ine washing, keep clean and dry, stay off of as able, medication s below including probiotic due to multiple antibiotic s, will follow-up Monday to reassess Hidradenit is suppurativa 65939029 L73.2 dermatolog y referral Nodule of skin of breast 429143572 N63.0 order ultrasound to be completed tomorrow with her mammogramn odule is 9:00 [id number] LISBET CARRERO NP [address] [place] [address] 10/11/2024 15:49:11 10/14/2024 07:57:15 Abscess of skin and/or subcutaneous tissue 90943236 L02.91 despite Hibiclens cleaning, Keflex and Bactrim abscess has grown outside of parameters that were marked on Monday, sent to ER for evaluation with possible I&D, may need IV or IM antibiotic sreport called to [facility] nurse Mass of right breast [id number] N63.10 ultrasound that was previously sent earlier this week has not been completed, will resend order [id number] Victoriano Bradshaw MD [address] [place] [address] 10/15/2024 10:52:30 10/15/2024 11:05:32 Abscess of skin and/or subcutaneous tissue 94318372 L02.91 patient needs to continue to take her antibiotic s. It appears that lesion is reoccurrin g therefore will refer patient to general surgeon. Mass of right breast 132 3206306 8862511 N63.10 patient has been referred to the breast center. [id number] Victoriano Bradshaw MD [address] [place] [address] 11/25/2024 08:53:27 11/25/2024 09:07:50 Long-term drug therapy 358890679 Z79.891 Patient to provide us with a urine sample. Anxiety disorder 1997267 06 F41.9 PATIENT TO CONTINUE WITH REGIMEN SHE IS CURRENTLY UNDERGOING COUNSELING . SHE REPORTS GOOD RESPONSE TO MEDICATION . Gastroesop hageal reflux disease 072640765 K21.9 Stable Continue with pantoprazo le. Hyperlipidemia 80381692 E78.5 Patient is currently on atorvastat in. Essential hypertension 93792969 I10 patient to continue with metoprolol . Chronic pain 49971277 G8 9.29 [id number] DO Asim MCNALLY General Surgery - [address] [place] [address], [address] [place] [address] 10/25/2024 11:29:59 10/28/2024 14:25:09 Infection of sebaceous cyst 502310188 L72.3 -patient with evidence of sebaceous cyst with recurrent cellulitic change -patient given Bactrim for cellulitic changes -discussed with the patient the risks (including bleeding, infection, recurrence ), benefits, alternativ es to excisional biopsy of right buttock skin lesion -patient agrees to proceed with surgical interventi on -patient to be scheduled at her earliest convenienc e [id number] DO Asim MCNALLY General Surgery [place] - [address] [facility], [address] [place] [address] 11/20/2024 14:38:14 11/20/2024 15:18:25 Postoperative visit 718333626 Z48.89 - patient is doing well from surgical standpoint - pathology discussed with the patient-garsia tures removed in office- follow up in surgical office as needed [id number] Victoriano Bradshaw MD [facility] [address] [place] [address] 03/07/2025 09:47:02 03/07/2025 10:15:24 Hidradenitis suppurativa 53802194 L73.2 we have made a referral to dermatolog y. Plantar callosity 024196 005 L84 will refer patient to podiatry Coronary arteriosclerosis 97110739 I25.10 [id number] Yolanda Flannery DPM [facility] [address],[place] [address] [place] [address] 04/01/2025 10:31:30 04/01/2025 11:31:05 Pain in left foot 1300249392 60927 M79.672 recommend more supportive shoes with ambulation Callosity 990526625 L84 L85.1 Discussed treatment options. Patient elects for cantharone treatment of painful lesion(s). Informed of potential skin irritation . Provided informatio n regarding post procedure care.Plan to order amlactin at follow up.Conside r custom orthotics pending progress [id number] Yolanda Flannery DPM [facility] Pod[facility] [address] [place] [address],[facility] [address] [place] [address] 04/21/2025 15:30:03 04/21/2025 17:38:43 Pain in left foot [id number] 27279 M79.672 Recommend more supportive shoes with ambulation - even in the home.Recom mend patient have his/her shoes stretched to accommodat e bony prominence s. Provided handout demonstrat ing recommende d device. This handout also provided informatio n regarding local shoe cobblers if prefer to have someone stretch the shoes for them and lists several shoe brand recommenda tions. Callosity 112678315 L84 L85.1 Discussed treatment options. Debrided lesion [...] by Organization Details LastModified Time None Recorded Advance Directives Directive N: Payers Insurance Date Sequence Insurance Name Policy Number Policy Brock Covered Member ID Brock Member ID Guarantor Name 11/08/2024 1 [employer] (MEDICARE REPLACEMENT/ ADVANTAGE - HMO) 00 [employer] [id number] [employer] 05/11/2024 1 [employer] [place] (MEDICA[place] HMO[place] [employer]ings [id number] [employer] 05/12/2025 1 [employer] [place] [employer] [id number] Pol[employer] 03/23/2022 1 [employer] [place] [employer] [id number] [employer] Notes Date Note Type Note Provider Name and Address Organization Details Recorded Time 11/20/2024 text/html 49-year-old britta rosado presents status post excisional biopsy of right gluteal soft tissue mass. Patient is doing well after surgery. Patient reports mild pain at suture sites. WELLINGTON BLANCAS DO [address], [address], [place], [address], [facility] & [place] 11/20/2024 22:26:22 11/25/2024 text/html Patient presents for routine follow-up. She denies any new issues. She recently had a cyst removed from breast. She is also scheduled for a biopsy at the breast Cancer Center in [place]. Patient reports no acute changes at this time. Victoriano Bradshaw MD [address] [place] [address], [phone], [facility] & [place] 11/25/2024 09:06:37 03/07/2025 text/html patient presents for routine follow-up. . She is still waiting a referral appointment for Dermatology secondary to her multiple skin abscesses. patient is also complaining of a large callus to the plantar aspect of her left foot laterally. Victoriano Bradshaw MD [address] [place] [address], [phone], [facility] & [place] 03/07/2025 10:14:40 04/01/2025 text/html Patient presents for treatment of [...] by PCP Dr. Bradshaw. Yolanda Flannery DPM [address] [facility], [address], [place], [address], [facility] & [place] 04/01/2025 17:56:35 04/21/2025 text/html patient presents for follow-up of [...] rest- both feet. Denies associated injury. Yolanda Flannery DPM [address] [place] [address], [address], [place], [address], [facility] [place] [facility] [place] 04/21/2025 16:35:59 OBGyn Episode No OBEpisode recorded.
--- OUTSIDE RECORDS SUMMARY | 2025-05-14 13:07 | XMS_ITS | Encounter Summary ---
Author Organization [employer] ([place], [place], [place], [place]) Address [address] [place] [address] Care Team Providers Care Bakery Supervisor Name Role Phone Unavailable Primary Care Provider Unavailabl e Encounter Details Date Type Department Care Team (Late st Contact Info) Description 08/31/2020 Transcribed Document [facility] [place] [facility] [place] [address] ProviderRenetta MD [address] [place] [address] Social History Tobacco Use Types Packs/Day Years Used Date Smoking Tobacco: Never Assessed Comments Unknown Sex and Gender Information Value Date Recorded Sex Assigned at Not on file Legal Sex Female 7:12 PM CDT Gender Identity Not on file Sexual Orientation Not on file documented as of this encounter Miscellaneous Notes * [employer]ner Conversion Note - Historical ProviderMD - 08/31/2020 9:28 AM SCHOOL PSYCHOLOGIST ASSISTANT Pre Procedure Adult Entered On: 08/31/2020 9:28 EST Performed On: 08/31/2020 9:28 EST by NUPUR MESSINA Rn-Clinical Coordinator I Height and Weight, Clinical Dosing Height Source : Stated Height Entry Format : [place] Height, Feet : 5 ft(Converted to: 152 cm, 60 Inch) Height, Inches : 5 Inch(Converted to: 0 ft 5 Inch, 12.70 cm) Clinical Height : 165.1 cm Weight Source : Standing scale Weight Entry Format : [place] Clinical Dosing Weight : 70.45 kg Weight, Pounds : 155 lb Body Surface Area (BSA) : 1.78 m2 Body Mass Index : 25.8 kg/m2 (HI) [place] Body Weight : 57 kg NUPUR MESSINA Rn-Clinical Coordinator I - 08/31/2020 9:28 EST Electronically signed by Deirdre [facility] Conversion Principal Gifts Officer Cerner at 02/07/2023 1:06 PM CDT documented in this encounter Plan of Treatment Not on file documented as of this encounter Visit Diagnoses Not on filedocumented in this encounter
== END 2025-05-14 23:59 | disposition home or self-care (01) ==
LOC: RT 13:00
PROVIDERS: PCP Emergency Medicine; Visit Provider Nurse Practitioner
DX: I35.1 Nonrheumatic aortic (valve) insufficiency (principal); I47.29 Other ventricular tachycardia; I10 Essential (primary) hypertension; I21.4 Non-ST elevation (NSTEMI) myocardial infarction
CPT/HCPCS: 93306

== ENCOUNTER 2025-05-28 07:27 | Outpatient (CLI) | payer MEDICAID, SELFPAY ==
--- NOTE | 2025-05-28 | CA_ITS ---
APPROVED REPORT Exam: Pharmacologic Technologist: Tiffany Bryan Ht: 5 ft 4 in Wt: 155 lbs BSA: 1.76 m2 Medical History Medications: aspirin, atorvastatin, vit B12, erenumab-aooe, evolocumab, gabapentin, pantoprazole, potassium chloride ER, ranolazine ER, zolpidem, hydroxyzine pamoate, metoprolol succinate ER, nitroglycerin, ondansetron HCI Stress Test Details Test: Lexiscan Reason for pharmacologic stress test: physical limitation. HR Resting HR: 63 bpm Max Heart Rate (APMHR): 171.293258 bpm Max HR Achieved: 89 bpm Target HR (85% APMHR): 145.757672 bpm % of APMHR: 52.05 Recovery HR: 74 bpm BP Resting BP: 134.0/73.0 mmHg Max BP: 142.0/81.0 mmHg Recovery BP: 135.0/78.0 mmHg ECG Resting ECG: SR 62 No isch or ectopy Stress ECG Conclusion Vasodilation 1 Min: Mild SOA Vasodilation 2 Min: anxious! Symptoms: None. Arrhythmias/Ectopy: None. ST-T Changes: Lexiscan. Electronically signed by : Pamela Stokes MD 05/28/2025 13:25:42
--- OUTSIDE RECORDS SUMMARY | 2025-05-28 07:29 | XMS_ITS | Encounter Summary ---
Author Organization Healthcare Address [address] [place] [address] Care Team Providers Care Insert Molding Operator Name Role Phone Victoriano May MD Primary Care Provider [phone] Encounter Details Date Type Department Care Team (Late st Contact Info) Description 02/17/2021 Orders Only External Location [address] [place] [address] Provider, External Social History Tobacco Use Types [...] on filedocumented in this encounter Care Teams Insert Molding Operator Relationship Specialty Start Date End Date Victoriano May MD [address] [place] [address] PCP - General 02/22/23 documented as of this encounter
--- OUTSIDE RECORDS SUMMARY | 2025-05-28 07:29 | XMS_ITS | Encounter Summary ---
Author Organization Healthcare Address [address] [place] [address] Care Team Providers Care Color Consultant Name Role Phone Victoriano May MD Primary Care Provider [phone] Encounter Details Date Type Department Care Team (Late st Contact Info) Description 01/11/2023 Lab Requisition [facility] [address] [place] [address] Provider, External Encounter for general adult medical [...] Culture Prevotella bivia(A) 01/12/2023 1:43 PM EDT [facility] Comment:This isolate has bee n identified using the FDA Approved Chirpme CA System Other Specimen from cyst / Unknown 01/09/2023 1:50 AM EDT 01/11/2023 11:04 AM EDT us External Provider LAB MICROBIOLOGY - GENERAL ORD ERABLES Final Result [facility] [address] [place] [address] documented in this encounter Visit Diagnoses Diagnosis Encounter for general adult medical examination without abnormal findings documented in this encounter Care Teams Color Consultant Relationship Specialty Start Date End Date Victoriano May MD [address] [place] [address] PCP - General 02/22/23 documented as of this encounter
--- OUTSIDE RECORDS SUMMARY | 2025-05-28 07:29 | XMS_ITS | Clinical Summary ---
Author Organization Healthcare Address [address] [place] [address] Care Team Providers Care Building Custodian Name Role Phone Victoriano May MD Primary Care Provider [phone] Allergies No known active allergies Medications ASPIRIN [...] End Date Status lidocaine-EPINEPHrine (Xylocaine W/EPI) 1 %-1:[id number] injection 8 mLIndications:Abnormal finding on breast imaging [...] C Screening 1975 [facility]-Infant/Child/Adol SDOH Screenings 1975 [id number] Vaccine (#1) 1980 [facility]- SDOH Screenings 1993 [...] to complete [id number] [employer] Care Teams Building Custodian Relationship Specialty Start Date End Date Victoriano May MD [address] [place] [address] PCP - General 02/22/23
--- NOTE | 2025-05-28 07:30 | NM_ITS ---
APPROVED REPORT Exam: Nuclear Stress Test Indication: Chest pain, SOB, Palpitations, HTN, High cholesterol, Tobacco use, Family history, Hx of NH Patient Location: Outpatient Stress Tech: Tiffany Bryan NM Tech:Myranda Barillas, ARRT, RT (R)(N) Ht: 5 ft 6 in Wt: 145 lbs Bra Size: 36A HR: 69 bpm BP: 134/73 mmHg BSA: 1.74 m2 TID: 1.14 BMI: 23.4 History: Chest pain, SOB, Palpitations, HTN, High cholesterol, Tobacco use, Family history, Hx of NH Procedure: Patient received 0.4 mg of intravenous Lexiscan, resting heart rate 69 bpm, resting blood pressure 134/73 mmHg, with Lexiscan maximum heart rate achieved was 91 bpm which is % of the maximum predicted heart rate and blood pressure was 142/81 mmHg. With Lexiscan, patient denied any complaint of chest pain. Cardiac Stress and Resting SPECT Images: Cardiac Stress and Resting SPECT images were obtained using technetium 99m Myoview 32.0 mCi stress and 10.33 mCi at rest. Resting and stress imaging in supine and prone positions demonstrate a medium-sized, moderate, predominantly fixed perfusion defect in the inferior LV wall. There is a small region of reversibility towards the inferoapical region. Gated imaging demonstrates mild reduction in global LV systolic function. LVEF is calculated at 49%. Conclusion: Medium-sized, moderate, predominantly fixed perfusion defect in the inferior LV wall. There is a small region of reversibility towards the inferoapical region. Findings are suggestive of partial reversible ischemia. Gated imaging demonstrates mild reduction in global LV systolic function. LVEF is calculated at 49%. Electronically signed by : Pamela Stokes MD 05/28/2025 13:25:19
--- OUTSIDE RECORDS SUMMARY | 2025-05-28 07:30 | XMS_ITS | Encounter Summary ---
Author Organization [employer] ([place], [place], [place], [place]) Address [address] [place] [address] Care Team Providers Care Breaker Operator Name Role Phone Unavailable Primary Care Provider Unavailabl e Encounter Details Date Type Department Care Team (Late st Contact Info) Description 09/01/2020 Transcribed Document [facility] Cardiology [address] [place] [id number] Anton Aguilar MD [address] [facility] [address] [place] [address] Social History Tobacco Use Types [...] exercise stress test. 2. Fair functional capacity. /[id number] Anton Aguilar MD NMF/AQ / NMF / MODL /[id number] documented in this encounter Plan of Treatment Not on file documented as of this encounter Visit Diagnoses Not on filedocumented in this encounter
--- OUTSIDE RECORDS SUMMARY | 2025-05-28 07:30 | XMS_ITS | Clinical Summary ---
Author Organization [employer] ([place], [place], [place], [place]) Address [address] [place] [address] Care Team Providers Care Tombstone Erector Name Role Phone Unavailable Primary Care Provider [...]
--- OUTSIDE RECORDS SUMMARY | 2025-05-28 07:30 | XMS_ITS | Referral Summary ---
Author Organization [employer] ([place], [place], [place], [place]) Address [address] [place] [address] Care Team Providers Care Automotive Salesperson Name Role Phone Unavailable Primary Care Provider [...]
--- OUTSIDE RECORDS SUMMARY | 2025-05-28 07:30 | XMS_ITS | Encounter Summary ---
Author Organization [employer] ([place], [place], [place], [place]) Address [address] [place] [address] Care Team Providers Care Cardiovascular Sonographer Name Role Phone Unavailable Primary Care Provider Unavailabl e Encounter Details Date Type Department Care Team (Late st Contact Info) Description 08/31/2020 Transcribed Document [facility] [place] Family Medicine [facility] [place] [address] ProviderRenetta MD [address] [place] [address] Social History Tobacco Use Types [...] - Historical ProviderMD - 08/31/2020 9:28 AM PHARMACY ASSOCIATE Pre Procedure Adult Entered On: 08/31/2020 9:28 EST Performed On: 08/31/2020 9:28 EST by NUPUR MESSINA Rn-Clinical Coordinator I Height and Weight, Clinical Dosing Height Source : Stated Height Entry Format : [place] Height, Feet : 5 ft(Converted to: 152 cm, 60 Inch) Height, Inches : 5 Inch(Converted to: 0 ft 5 Inch, 12.70 cm) Clinical Height : 165.1 cm Weight Source : Standing scale Weight Entry Format : [place] Clinical Dosing Weight : 70.45 kg Weight, Pounds : 155 lb Body Surface Area (BSA) : 1.78 m2 Body Mass Index : 25.8 kg/m2 (HI) [place] Body Weight : 57 kg NUPUR MESSINA Rn-Clinical Coordinator I - 08/31/2020 9:28 EST Electronically signed by Deirdre [facility] Conversion Dock Coordinator Cerner at 02/07/2023 1:06 PM CDT documented in this encounter Plan of Treatment Not on file documented as of this encounter Visit Diagnoses Not on filedocumented in this encounter
--- OUTSIDE RECORDS SUMMARY | 2025-05-28 07:30 | XMS_ITS | Encounter Summary ---
Author Organization Healthcare Address [address] [place] [address] Care Team Providers Care Vascular Surgeon Name Role Phone Victoriano May MD Primary Care Provider [phone] Encounter Details Date Type Department Care Team (Late st Contact Info) Description 01/10/2020 Orders Only External Location [address] [place] [address] Provider, External Social History Tobacco Use Types [...] on filedocumented in this encounter Care Teams Vascular Surgeon Relationship Specialty Start Date End Date Victoriano May MD [address] [place] [address] PCP - General 02/22/23 documented as of this encounter
[2025-05-28] MEDS: ISOTOPE MYOVIEW (PER STUDY) 1 DOSE IV (09:01)
[2025-05-28] MEDS: SODIUM CHLORIDE 0.9% 10ML SYR (RAD ONLY) 10 ML IV ×2 (09:01)
== END 2025-05-28 23:59 | disposition home or self-care (01) ==
LOC: RAD 07:28
PROVIDERS: PCP Emergency Medicine; Visit Provider Nurse Practitioner
DX: I47.29 Other ventricular tachycardia (principal); I10 Essential (primary) hypertension; I21.4 Non-ST elevation (NSTEMI) myocardial infarction; E78.00 Pure hypercholesterolemia, unspecified; I25.2 Old myocardial infarction; R94.39 Abnormal result of other cardiovascular function study; Z72.0 Tobacco use
CPT/HCPCS: 78452; 93016; 93017; 93018; A9502; J2785

== ENCOUNTER 2025-06-04 01:12 | Observation (INO) | payer MEDICAID, SELFPAY ==
[2025-06-04] VITALS (19 sets, daily range): BP systolic 86–170; BP diastolic 51–82; PULSE 50–66; RESP 16–19; TEMP 36.4–36.7; O2SAT 92–99; BMI 25.2; BMI 25.0
--- NOTE | 2025-06-04 01:30 | PC.NURSE ---
pt arrived on floor @ 0113
--- NOTE | 2025-06-04 01:37 | CA_ITS ---
APPROVED REPORT EXAM: Comprehensive 2D, Doppler, and color-flow Echocardiogram Mis Manager: JOVAN Macias, RVS Ht: 5 ft 6 in Wt: 156lbs BSA: 1.80 BP: 170/82 mmHg Indications: CP, CAD, Smoker, SOA 2D Dimensions Left Atrium 2.86 cm F: 2.7 - 3.8 M-Mode Dimensions RVDd 0.90 cm (0.9-2.6) LA Diam 3.24 cm (1.9-4.0) LVDd 5.25 cm (3.5-5.7) LVDs 3.32 cm (3.5-5.7) IVSd 0.93 cm (0.6-1.1) PWd 0.96 cm (0.6-1.1) EF (Teich) 64.30% EPSs 0.55 cm FS 35.30% EDV (Teich) 125.50 mL ESV (Teich) 44.80 mL Other Information Study Quality: Fair Conclusion This is a limited TTE to evaluate for LV systolic function. Limited windows are obtained. The left ventricle is normal in size. There is increased LV wall thickness. There is low-normal global LV systolic function. There is moderate hypokinesis of the septal LV wall. LVEF is 50%. Electronically signed by : Pamela Stokes MD 06/04/2025 12:43:41
--- NOTE | 2025-06-04 01:44 | P.HP_ITS ---
<Statement entered by Ike Edwards MD - 06/05/25 10:09> Personally evaluated patient and agree with the plan of care as outlined by the RESOURCE CONSERVATIONIST. History of Present Illness *Admission Date: 06/04/25 *Reason for visit:: Chest pressure *History of present illness: This is a 49-year-old female who has a past medical history significant for depression, anxiety, angina, bipolar, migraine headache, GA, and restless leg syndrome who presents from [facility] with a chief complaint of persistent chest pain. While at [facility], patient had troponins that were negative on 2 different occasion. Per ED provider, EKG was without any STEMI or ST segment deviation. Her case was discussed with her primary microwave technician who recommended patient be transferred to [facility] for further management. As result of those recommendations, patient was transitioned to [facility] for further management. During my evaluation of patient, patient states that her chest pain/chest pressure started at around noon. Patient reports her chest pressure had no radiation, was coupled with some shortness of breath, without any diaphoresis/dyspnea, is still intermittently ongoing, and had nothing that made it worse or better. Patient reports she did take nitro x 2 prior to presenting to [facility] and while there she was given nitro without any relief of her symptomology. Patient reports that she recently underwent provocative workup and it shows some ST segment changes noted during the stress event. Patient was scheduled for an elective left heart cath on Monday, but since she has has this ongoing chest pressure/pain she presented to the emergency room. Patient did have a left heart cath back in February 2023 where there was no coronary artery intervention but there was some clotting noted. She was prescribed Brilinta and aspirin and placed on a Integrilin drip while inpatient. Currently, patient denied any lightheadedness, dizziness, fever, chills, rigors, PND, orthopnea, lower extremity swelling, nausea, vomiting, dyspnea, or diarrhea. [facility] Disclaimer: The information contained in this section may have been updated after the patient was seen, as this information can be updated by other users. Medical History Anemia Coronary artery disease Coronary artery thrombosis Hyperlipidemia Migraine RLS (restless legs syndrome) Anxiety disorder Depression GERD (gastroesophageal reflux disease) Bipolar 1 disorder Surgical History History of cholecystectomy Hx of tubal ligation [place] teeth extracted Family History Other Anemia Asthma Cancer Coronary artery disease Diabetes FHx: mental illness Hyperlipidemia Hypertension Stroke Thyroid disorder Social History (Updated 06/04/25 @ 01:38 by Alisha Padilla RN) Smoking Status: Current every day smoker alcohol intake: never current occupational status: unemployed Travel in the last 8 weeks?: Inside the [place] Have you lived/traveled outside US in past 30 days?: No Contact w/someone who lives/traveled outside US past 30 days?: No Exposure to someone with infectious disease in past 14 days?: No Do you have a fever (greater than 100.4 F or 38 C)?: No Have you tested positive for COVID-19?: No Exposed to someone with COVID-19 in past 14 days?: No Do you have a sore throat?: No Do you have a cough?: No Do you have any weakness?: No Are you experiencing any nausea/vomitting?: No Do you have any diarrhea?: No Are you experiencing any unusual bleeding?: No Do you have any muscle aches/pain?: No Do you have any abdominal pain?: No Are you experiencing loss of taste or smell?: No Other Medical History Have you received the Flu Vaccine for this season: No Have you received the Pneumonia Vaccine: No Review of Systems Review of Systems Review of systems:: pertinent systems reviewed and negative unless documented below Constitutional Constitutional: Reports system reviewed and no additional complaints, except as documented Eyes Eyes: Reports system reviewed and no additional complaints, except as documented ENT Ears, Nose, Mouth, and Throat: Reports system reviewed and no additional complaints, except as documented *Cardiovascular Cardiovascular: Reports chest pain, Reports chest pain at rest and Reports dyspnea *Respiratory Respiratory: Reports dyspnea *Gastrointestinal Gastrointestinal: Reports system reviewed and no additional complaints, except as documented *Genitourinary Genitourinary: Reports system reviewed and no additional complaints, except as documented *Musculoskeletal Musculoskeletal: Reports system reviewed and no additional complaints, except as documented Integumentary/Breasts Skin/Breast: Reports system reviewed and no additional complaints, except as documented *Neurologic Neurologic: Reports system reviewed and no additional complaints, except as documented Psychiatric Psychiatric: Reports system reviewed and no additional complaints, except as documented Endocrine Endocrine: Reports system reviewed and no additional complaints, except as documented Hematologic/Lymphatic Hematologic/Lymphatic: Reports system reviewed and no additional complaints, except as documented Allergic/Immunologic Allergic/Immunologic: Reports system reviewed and no additional complaints, except as documented Meds Home Medications and Allergies Home Medications ?Medication ?Instructions ?Recorded ?Confirmed ?Type cyanocobalamin (vitamin B-12) 1,000 mcg SQ MONTHLY Sup plement 02/22/23 06/04/25 History 1,000 mcg/mL injection solution erenumab-aooe 70 mg/mL 70 mg SQ MONTHLY migraines 0 02/22/23 06/04/25 History subcutaneous auto-injector (Aimovig Autoinjector) gabapentin 300 mg capsule 300 mg PO TID Pain 02/22/23 06/04/25 History zolpidem 10 mg tablet 10 mg PO HS Insomnia 3 06/04/25 History ondansetron HCl 8 mg tablet 8 mg PO Q6H PRN Nausea And Vomiting 03/06/23 06/04/25 History aspirin 81 mg chewable tablet 81 mg PO DAILY 30 days # 30 tabs 03/27/23 06/04/25 Rx pantoprazole 40 mg tablet,delayed 40 mg PO HS 30 days #30 tabs 03/27/23 06/04/25 Rx release hydroxyzine pamoate 50 mg capsule 100 mg PO BID PRN An xiety 03/29/23 06/04/25 History nitroglycerin 0.4 mg sublingual 0.4 mg sublingual ONCE PRN chest 03/29/23 06/04/25 History tablet pain atorvastatin 80 mg tablet 80 mg PO DAILY #90 tabs 12/2106/04/25 Rx metoprolol succinate 100 mg 100 mg PO DAILY 30 days #3 0 tabs 01/08/25 06/04/25 R x tablet,extended release 24 hr evolocumab 140 mg/mL subcutaneous 140 mg SQ Q2W 28 day s #2 mL 04/28/25 06/04/25 Rx pen injector (Mya Cox) potassium chloride 10 mEq 10 meq PO DAILY 06/04/25 History capsule,extended release ranolazine 500 mg tablet,extended 500 mg PO BID 06/04/25 History release,12 hr New Prescriptions to Start Prescriptions: Allergies Allergy/AdvReac Type Severity Reaction Status Date / Time isosorbide AdvReac Headache Verified 05/29/25 13:43 Exam Data for Last 24 hours Vital signs and Labs for Last 24 Hours: Temp Pulse Resp BP Pulse Ox O2 Del Method 98.0 F 58 L 16 170/82 H 97 Room Air 06/04/25 01:32 06/04/25 01:38 06/04/25 01:32 06/04/25 01:32 06/04/25 01:38 06/04/25 01:38 I & O for Last 24 hours: Intake & Output 06/01/25 06/02/25 06/03/25 06/04/25 23:59 23:59 23:59 23:59 Weight 70.902 kg Constitutional Constitutional: no acute distress, cooperative and combative *Routine HEENT Exam Head: Present normocephalic and atraumatic Eye: Present EOMI, PERRL and normal accommodation ENT: Present mucous membranes moist *Routine Neck Exam Neck: Present supple, full ROM and trachea midline *Routine Respiratory Exam Respiratory: Present CTA bilaterally, normal respiratory effort, able to speak in complete sentences and symmetric chest movement *Routine Cardiovascular Exam Cardiovascular: Present Normal S1 and Normal S2 *Routine Abdominal Exam Abdominal: Present soft and normoactive bowel sounds *Routine Rectal Exam Rectal:: deferred *Routine Genitalia Exam Genitalia:: deferred *Routine Extremities Exam Extremities: Present full ROM, pulses intact and normal capillary refill Routine Back/Spine/Pelvis Exam Back/Spine: Present full ROM *Routine Skin Exam Skin: Present intact, dry and warm *Routine Neurological Exam Neurological: Present alert, oriented X3, CN II-XII intact, moving all extremities and normal speech Routine Psychiatric Exam Psychiatric: Present normal affect, normal thought process, cooperative, good insight and good judgment H&P: Result Impressions 49-year-old female presents from [facility] with a chief complaint of chest pain/chest pressure while at rest and was refractory to nitrates. Patient has history of angina and recent stress test that showed some ST segment changes during her a provocative workup. Patient is status post left heart cath performed in 2022 where there was some clotting noted in the posterior descending artery this was managed with Brilinta and aspirin with the recommendation of LDL to be less than 55. Assessment and Plan *Assessment and plan (1) Unstable angina: Status: Acute Category: Medical Code(s): I20.0 - Unstable angina (2) Abnormal stress test: Status: Acute Category: Medical Code(s): R94.39 - Abnormal result of other cardiovascular function study Plan Assessment: Unstable angina Abnormal stress test -Continue to trend patient's troponin every 6 hours - We will obtain 2D echo - Will keep patient n.p.o. until evaluated by microwave technician - Will continue to offer nitro for chest discomfort Plan: Admit patient to the MedSurg unit on telemetry Vital signs every 4 hours Daily weight Consult Dr. Beck Keep patient n.p.o. CMP/CBC/lactate/lipid panel/magnesium now CBC/BMP daily 40 mg Lovenox subcu daily for DVT prophylax 21 mg nicotine patch daily Full code I will discuss this case with attending physician Dr. Edwards and I look forward to more input
--- NOTE | 2025-06-04 02:08 | ECG_ITS ---
APPROVED REPORT Exam: Resting ECG HR:54 bpm ECG Measurements Heart Rate 54 AXES MN 187 P 73 QRSd 82 QRS 47 QT 444 T 41 QTc 430 Conclusion SINUS BRADYCARDIA POSSIBLE RIGHT VENTRICULAR CONDUCTION DELAY [RSR (QR) IN V1/V2] BORDERLINE ECG UNCONFIRMED REPORT Electronically signed by : GEMMA OLIVIER, 06/06/2025 00:34:13
[2025-06-04] MEDS: IBUPROFEN 400 MG TABLET PO (02:10)
[2025-06-04] MEDS: HYDRALAZINE 20MG/ML VIAL 10 MG IV (02:11)
[2025-06-04] MEDS: NICOTINE 21MG/24HR PATCH 21 MG TD (02:11)
--- NOTE | 2025-06-04 04:17 | PC.NURSE ---
Pt BP was elevated upon admission, 170/82, PRN hydralazine given per provider PRN order. Pt also c/o a headache, pt treated per DEC (see DEC) Pt BP at this time is 90/51, D. JESSY Darby made aware. Orders to monitor BP for x2 hours, if no improvement administer 500 ml bolus. Pt is asymptomatic, denies chest pain and needs.
[2025-06-04] MEDS: RINGERS SOLUTION,LACTATED 500 ML 250 ML IV (05:18)
[2025-06-04 06:03] LABS: Albumin Level 3.7 g/dl (3.5-5.0); Chloride 110 mmol/L (98-107)
[2025-06-04 06:05] LABS: Alanine Aminotransferase 7 U/L (12-78); Aspartate Amino Transferase 20 U/L (14-36); Blood Urea Nitrogen 7 mg/dl (7-17); Creatinine Clearance Estimated 108 mL/min (50-200); Creatinine,Serum 0.70 mg/dl (0.52-1.04); Estimated Glomerular Filt Rate 89 ml/min (>60); GFR (African American) 108 ML/MIN (>60); Potassium 3.2 mmoL/L (3.5-5.1); Sodium 144 mmol/L (136-145)
[2025-06-04 06:06] LABS: Albumin/Globulin Ratio 1.3 (1.1-1.8); Alkaline Phosphatase 123 U/L (38-126); Anion Gap 8.2 mEq/L (5-15); Bilirubin,Total 0.5 mg/dl (0.2-1.3); Calcium 8.7 mg/dl (8.4-10.2); Carbon Dioxide 29 mmol/L (22.0-30.0); Cholesterol 86 mg/dl (140-200); Globulin 2.8 g/dL (1.3-3.2); Glucose 85 mg/dl (74-100); HDL Cholesterol 28 mg/dl (40-60); Magnesium 2.0 mg/dl (1.6-2.3); Total Protein,Serum 6.5 g/dl (6.3-8.2); Triglycerides 127 mg/dl (30-150)
[2025-06-04 06:18] LABS: Troponin I < 0.01 ng/ml (0.00-0.034)
--- NOTE | 2025-06-04 06:29 | PC.NURSE ---
500 ml bolus given for decreasing BP @ 0500, per provider. Pt BP 110/70 (manual) at this time.
[2025-06-04 06:46] LABS: Hematocrit 35.5 % (37.0-47.0); Hemoglobin 11.6 g/dL (12.2-16.2); Immature Granulocytes % 0.3 %; Mean Corpuscular HGB Conc 32.7 g/dL (31.8-35.4); Mean Corpuscular Hemoglobin 31.7 pg (27.0-31.2); Mean Corpuscular Volume 97.0 fl (81-99); Nucleated Red Blood Cells % 0 %; Platelet Count 150 K/mm3 (142-424); Red Blood Count 3.66 M/mm3 (4.20-5.40); Red Cell Distribution Width-SD 48.5 fL; White Blood Count 6.0 K/mm3 (4.8-10.8)
[2025-06-04] MEDS: ASPIRIN EC 81MG TABLET 81 MG PO (08:36)
[2025-06-04 09:04] LABS: Thyroid Stimulating Hormone 1.61 uIU/mL (0.465-4.68)
[2025-06-04] MEDS: METOPROLOL SUCCINATE XL 25MG TABLET 25 MG PO (09:12)
--- NOTE | 2025-06-04 09:33 | IR_ITS ---
APPROVED REPORT Patient Location: Inpatient PROCEDURES Left heart catheterization Left ventriculogram Selective coronary angiogram INDICATION Known coronary artery disease, Unstable angina Informed consent was obtained prior to the procedure. COMPLICATIONS None Estimated Blood Loss: Less than 10 mls TECHNIQUE One percent lidocaine used to anesthetize the right anterior aspect of the wrist. The right radial artery was accessed via the Seldinger technique. A 6 Bulgarian sheath was placed in the right radial artery. 2.5 mg of Verapamil, 800 mcg of nitroglycerin, 1mg Lidocaine and 5000 U Heparin were given through the arterial sheath. The JL3 catheter was also used to perform left heart catheterization, left ventriculogram and selective coronary angiogram. At the end of the procedure the sheath was removed good hemostasis was achieved using Traclet band, patient was transferred to the postop holding area in stable condition. ANGIOGRAPHIC RESULTS The left main artery Normal The left anterior descending artery Has a proximal eccentric 20 to 30% stenosis with remaining vessel having 10% luminal regularities The circumflex artery Mild 10% luminal regularities The right coronary artery Dominant mild 10% luminal regularities The RANGEL ventriculogram reveals Normal 60% The left ventricular end-diastolic pressure 10 to 15 mmHg IMPRESSION Mild to moderate proximal LAD disease as described above Normal ejection fraction Normal LVEDP PLAN 1. Medical management with risk factor modification Electronically signed by : Sameer Beck MD 06/04/2025 14:25:17
[2025-06-04] MEDS: ACETAMINOPHEN 325MG TAB 650 MG PO (09:34)
--- NOTE | 2025-06-04 10:28 | EXP.CARD.CON ---
History of Present Illness History of Present Illness Consult date: 06/04/25 Requesting physician: Ike Edwards Consult reason: chest pain Chief complaint: CP History of present illness: 49-year-old white female established patient of our office admitted as a transfer from [facility] with unstable angina overnight which is why we are consulted. Pt has a history of CAD status post NSTEMI and drug-eluting stent 2012- she had acute thrombus in PDA at the time with 30% LAD left to med managmenet. Historically normal echo but ongoing tobacco use. Presented outpatient recently for worsening episodic chest discomfort and underwent stress imaging which was abnormal so she was scheduled for left heart cath next week. Yesterday developed worsening CP around noon without any associated symptoms or modifying factors. Presented to [facility] ER with normal Trop and no ST elevation. Ntg did not relieve her symptoms. Given her hx and scheduled LHC with abnl stress our service was called and recommended transfer for inpatient cath. I am seeing patient the following morning. She states she is feeling better overall but is still having some mild constant substernal nonradiating chest pain. Her Trop are normal but there is a Q-wave in V3 which is not noted on EKG last year. We discussed LHC and she would like to proceed. [facility] Disclaimer: The information contained in this section may have been updated after the patient was seen, as this information can be updated by other users. Medical History Anemia Coronary artery disease Coronary artery thrombosis Hyperlipidemia Migraine RLS (restless legs syndrome) Anxiety disorder Depression GERD (gastroesophageal reflux disease) Bipolar 1 disorder Surgical History History of cholecystectomy Hx of tubal ligation [place] teeth extracted Family History Other Anemia Asthma Cancer Coronary artery disease Diabetes FHx: mental illness Hyperlipidemia Hypertension Stroke Thyroid disorder Social History Smoking Status: Current every day smoker alcohol intake: never current occupational status: unemployed Travel in the last 8 weeks?: Inside the [place] Have you lived/traveled outside US in past 30 days?: No Contact w/someone who lives/traveled outside US past 30 days?: No Exposure to someone with infectious disease in past 14 days?: No Do you have a fever (greater than 100.4 F or 38 C)?: No Have you tested positive for COVID-19?: No Exposed to someone with COVID-19 in past 14 days?: No Do you have a sore throat?: No Do you have a cough?: No Do you have any weakness?: No Are you experiencing any nausea/vomitting?: No Do you have any diarrhea?: No Are you experiencing any unusual bleeding?: No Do you have any muscle aches/pain?: No Do you have any abdominal pain?: No Are you experiencing loss of taste or smell?: No Review of Systems Constitutional Constitutional: Denies fatigue and Denies weakness Eyes Eyes: Denies loss of vision ENT Ears, Nose, Mouth, and Throat: Denies hearing loss *Cardiovascular Cardiovascular: Reports chest pain and Denies dyspnea *Respiratory Respiratory: Denies cough and Denies dyspnea *Gastrointestinal Gastrointestinal: Denies change in stool character, Denies nausea and Denies vomiting *Musculoskeletal Musculoskeletal: Denies muscle weakness Integumentary/Breasts Skin/Breast: Denies changing lesions *Neurologic Neurologic: Reports system reviewed and no additional complaints, except as documented, Denies loss of vision and Denies weakness Endocrine Endocrine: Denies fatigue Exam Data for Last 24 hours Vital signs and Labs for Last 24 Hours: Temp Pulse Resp BP Pulse Ox O2 Del Method 97.6 F 55 L 16 116/72 96 Room Air 06/04/25 08:00 06/04/25 08:00 06/04/25 08:00 06/04/25 08:00 06/04/25 08:00 06/04/25 09:06 Laboratory Results - last 24 hr 06/04/25 04:45: WBC 6.0, RBC 3.66 L, Hgb 11.6 L, Hct 35.5 L, MCV 97.0, MCH 31.7 H, MCHC 32.7, RDW 13.5, Plt Count 150, MPV 13.1 H, Neut % (Auto) 39.3, Lymph % (Auto) 49.4, Travis % (Auto) 6.7, Eos % (Auto) 3.5, Baso % (Auto) 0.8, Neut # (Auto) 2.4, Lymph # (Auto) 3.0, Travis # (Auto) 0.4, Eos # (Auto) 0.2, Baso # (Auto) 0.1, Sodium 144, Potassium 3.2 L, Chloride 110 H, Carbon Dioxide 29, Anion Gap 8.2, BUN 7, Creatinine 0.70, Estimated Creat Clear 108, Estimated GFR 89, Est GFR ( Amer) 108, Glucose 85, Lactate 0.9, Calcium 8.7, Magnesium 2.0, Total Bilirubin 0.5, AST 20, ALT 7 L, Alkaline Phosphatase 123, Troponin I < 0.01, Total Protein 6.5, Albumin 3.7, Globulin 2.8, Albumin/Globulin Ratio 1.3, Triglycerides 127, Cholesterol 86 L, LDL Cholesterol Direct 30.59 L, VLDL Cholesterol 25, HDL Cholesterol 28 L, Cholesterol/HDL Ratio 3.1, TSH 1.61 I & O for Last 24 hours: Intake & Output 06/01/25 06/02/25 06/03/25 06/04/25 23:59 23:59 23:59 23:59 Output Total 600 / 600 Balance -600 / -600 Weight 155 lb 9.6 oz Constitutional Constitutional: no acute distress and cooperative *Routine HEENT Exam Eye: Present PERRL *Routine Respiratory Exam Respiratory: Present CTA bilaterally; Absent accessory muscle use, wheezes or crackles *Routine Cardiovascular Exam Cardiovascular: Present RRR, Normal S1 and Normal S2; Absent murmur, gallop or rubs *Routine Abdominal Exam Abdominal: Present soft; Absent tenderness *Routine Extremities Exam Extremities: Present pulses intact; Absent cyanosis or edema *Routine Skin Exam Skin: Present intact; Absent erythema or wounds *Routine Neurological Exam Neurological: Present alert and oriented X3 Routine Psychiatric Exam Psychiatric: Present cooperative Meds Home Medications and Allergies Home Medications ?Medication ?Instructions ?Recorded ?Confirmed ?Type cyanocobalamin (vitamin B-12) 1,000 mcg SQ MONTHLY Supplement 02/22/23 06/04/25 History 1,000 mcg/mL injection solution erenumab-aooe 70 mg/mL 70 mg SQ MONTHLY migraines 02/22/23 06/04/25 History subcutaneous auto-injector (Aimovig Autoinjector) gabapentin 300 mg capsule 300 mg PO TID 02/22/23 06/04/25 History zolpidem 10 mg tablet 10 mg PO HS 02/22/23 06/04/25 History ondansetron HCl 8 mg tablet 8 mg PO Q6H PRN Nausea And Vomiting 03/06/23 06/04/25 History aspirin 81 mg chewable tablet 81 mg PO DAILY 30 days #30 tabs 03/27/23 06/04/25 Rx pantoprazole 40 mg tablet,delayed 40 mg PO HS 30 days #30 tabs 03/27/23 06/04/25 Rx release hydroxyzine pamoate 50 mg capsule 50 mg PO DAILY PRN Anxiety 03/29/23 06/04/25 History nitroglycerin 0.4 mg sublingual 0.4 mg sublingual DIRECTED PRN 03/29/23 06/04/25 History tablet chest pain atorvastatin 80 mg tablet 80 mg PO DAILY #90 tabs 01/08/25 06/04/25 Rx metoprolol succinate 100 mg 100 mg PO DAILY 30 days #30 tabs 01/08/25 06/04/25 Rx tablet,extended release 24 hr evolocumab 140 mg/mL subcutaneous 140 mg SQ DIRECTED EVERY 2 WEEKS 06/04/25 06/04/25 History pen injector (Mya Cox) potassium chloride 10 mEq 10 meq PO DAILY 06/04/25 06/04/25 History capsule,extended release ranolazine 500 mg tablet,extended 500 mg PO BID 06/04/25 06/04/25 History release,12 hr New Prescriptions to Start Prescriptions: Allergies Allergy/AdvReac Type Severity Reaction Status Date / Time isosorbide AdvReac Headache Verified 05/29/25 13:43 Assessment and Plan *Assessment and plan (1) Unstable angina: Status: Acute Category: Medical Code(s): I20.0 - Unstable angina (2) Abnormal stress test: Status: Acute Category: Medical Code(s): R94.39 - Abnormal result of other cardiovascular function study (3) Coronary artery disease: Status: Acute Qualifiers: Coronary Disease-Associated Artery/Lesion type: [place] artery [place] vs. transplanted heart: [place] heart Associated angina: without angina Qualified Code(s): I25.10 - Atherosclerotic heart disease of [place] coronary artery without angina pectoris Category: Medical Code(s): I25.10 - Atherosclerotic heart disease of [place] coronary artery without angina pectoris Plan Multivessel CAD with Unstable Angina - CCS = 4 despite Metoprolol, Ranolazine, and Ntg. Normal Trop, abnl EKG and stress test - [facility] 2022 - PDA thrombus, LAD 30% - EKG - new anterior q-wave - Myoview 05/28/25 -medium sized moderate predominantly fixed perfusion defect inferior LV wall. Small region of reversibility towards the inferoapical region suggestive of partial reversible ischemia. - recurrent exertional chest pain with abnormal EKG (q-wave V3), normal trop, and abnormal stress test (sm - Plan: cont ASA, Lovenox, BB, Statin, [facility] today Htn - well controlled 120s or less - cont home dose Metoprolol HLD - well controlled, LDL 30.59 on statin and PCSK-9 CV stable, further plans pending [facility] results. Likely DC home today.
[2025-06-04] MEDS: HEPARIN 1,000 UNITS/500ML NS (CATH LAB) 3000 UNIT IV (10:34)
[2025-06-04] MEDS: LIDOCAINE 1% 10ML MDV 10 ML IJ (10:34)
[2025-06-04] MEDS: VERAPAMIL 2.5MG/ML 2ML VIAL 2.5 MG IV (10:35)
[2025-06-04] MEDS: NITROGLYCERIN 800MCG/8ML SYR (CATH LAB) 800 MCG IA (10:35)
[2025-06-04] MEDS: HEPARIN 1,000 UNITS/ML 10ML VIAL (CATH LAB) 5000 UNIT IV (10:35)
[2025-06-04] MEDS: 0.9 % SODIUM CHLORIDE 500 ML 25 ML IV (10:36)
[2025-06-04 11:09] LABS: Hemoglobin A1C 5.3 % (4.0-6.0)
[2025-06-04] MEDS: MIDAZOLAM HCL 1MG/ML 5ML VIAL 1 MG IV (11:19)
[2025-06-04] MEDS: FENTANYL 100MCG/2ML VIAL 50 MCG IV (11:20)
[2025-06-04] MEDS: IOPAMIDOL-370 (76%);100ML BOTTLE 40 ML IV (12:21)
--- NOTE | 2025-06-04 13:23 | P.DS_ITS ---
<Statement entered by Ike Edwards MD - 06/05/25 10:09> Personally evaluated patient and agree with the plan of care as outlined by the M[employer]DER. General Admission date:: 06/04/25 Discharge date: 06/04/25 HPI HPI HPI: This is a 49-year-old female who has a past medical history significant for depression, anxiety, angina, bipolar, migraine headache, VA, and restless leg syndrome who presents from [facility] with a chief complaint of persistent chest pain. While at [facility], patient had troponins that were negative on 2 different occasion. Per ED provider, EKG was without any STEMI or ST segment deviation. Her case was discussed with her primary steamfitter who recommended patient be transferred to [facility] for further management. As result of those recommendations, patient was transitioned to [facility] for further management. During my evaluation of patient, patient states that her chest pain/chest pressure started at around noon. Patient reports her chest pressure had no radiation, was coupled with some shortness of breath, without any diaphoresis/dyspnea, is still intermittently ongoing, and had nothing that made it worse or better. Patient reports she did take nitro x 2 prior to presenting to [facility] and while there she was given nitro without any relief of her symptomology. Patient reports that she recently underwent provocative workup and it shows some ST segment changes noted during the stress event. Patient was scheduled for an elective left heart cath on Monday, but since she has has this ongoing chest pressure/pain she presented to the emergency room. Patient did have a left heart cath back in February 2023 where there was no coronary artery intervention but there was some clotting noted. She was prescribed Brilinta and aspirin and placed on a Integrilin drip while inpatient. Currently, patient denied any lightheadedness, dizziness, fever, chills, rigors, PND, orthopnea, lower extremity swelling, nausea, vomiting, dyspnea, or diarrhea. Hospital Course Hospital Course Hospital Course: Ms. Zurita is a 49-year-old female who was admitted as a transfer from [facility]. Patient has been seeing our outpatient cardiology office for intermittent chest pain. Patient had a outpatient stress test on 05/28/2025 which showed findings suggestive of partial reversible ischemia. Patient was planning for outpatient cardiac cath but began having worsening chest discomfort and went to the ED. per ED provider, EKG was without any STEMI or ST segment deviation. Serial troponins negative. Patient reports she had a LHC in 03/14 which showed no coronary artery disease but noted to have a thrombus to the PDA. Patient was admitted for further cardiac workup and left heart cath. Plan of care is was as follows: #Unstable angina #Abnormal stress test #CAD ? Serial troponins remain negative during admission. Echo shows LVEF of 55%. Patient denies chest pain, palpitations, nausea, vomiting. ? Patient had left heart cath today with no intervention. Per cardiology patient to continue metoprolol, aspirin, statin therapy. Increase ranolazine to 1000 mg twice daily. Nitroglycerin sublingual as needed for chest pain. ? Patient has follow-up with cardiology next week. #Tobacco use disorder ? Smoking cessation discussed with patient. Exam Data for Last 24 hours Vital signs and Labs for Last 24 Hours: Temp Pulse Resp BP Pulse Ox O2 Del Method 97.6 F 54 L 19 86/59 L 92 L Room Air 06/04/25 08:00 06/04/25 11:40 06/04/25 11:40 06/04/25 11:40 06/04/25 11:40 06/04/25 13:00 Laboratory Results - last 24 hr 06/04/25 04:45: WBC 6.0, RBC 3.66 L, Hgb 11.6 L, Hct 35.5 L, MCV 97.0, MCH 31.7 H, MCHC 32.7, RDW 13.5, Plt Count 150, MPV 13.1 H, Neut % (Auto) 39.3, Lymph % (Auto) 49.4, [place] % (Auto) 6.7, Eos % (Auto) 3.5, Baso % (Auto) 0.8, Neut # (Auto) 2.4, Lymph # (Auto) 3.0, [place] # (Auto) 0.4, Eos # (Auto) 0.2, Baso # (Auto) 0.1, Sodium 144, Potassium 3.2 L, Chloride 110 H, Carbon Dioxide 29, Anion Gap 8.2, BUN 7, Creatinine 0.70, Estimated Creat Clear 108, Estimated GFR 89, Est GFR ( Amer) 108, Glucose 85, Hemoglobin A1c 5.3, Lactate 0.9, Calcium 8.7, Magnesium 2.0, Total Bilirubin 0.5, AST 20, ALT 7 L, Alkaline Phosphatase 123, Troponin I < 0.01, Total Protein 6.5, Albumin 3.7, Globulin 2.8, Albumin/Globulin Ratio 1.3, Triglycerides 127, Cholesterol 86 L, LDL Cholesterol Direct 30.59 L, VLDL Cholesterol 25, HDL Cholesterol 28 L, Cholesterol/HDL Ratio 3.1, TSH 1.61 Temp Pulse Resp BP Pulse Ox O2 Del Method 97.6 F 55 L 16 116/72 96 Room Air 06/04/25 08:00 06/04/25 08:00 06/04/25 08:00 06/04/25 08:00 06/04/25 08:00 06/04/25 09:06 Laboratory Results - last 24 hr 06/04/25 04:45: WBC 6.0, RBC 3.66 L, Hgb 11.6 L, Hct 35.5 L, MCV 97.0, MCH 31.7 H, MCHC 32.7, RDW 13.5, Plt Count 150, MPV 13.1 H, Neut % (Auto) 39.3, Lymph % (Auto) 49.4, [place] % (Auto) 6.7, Eos % (Auto) 3.5, Baso % (Auto) 0.8, Neut # (Auto) 2.4, Lymph # (Auto) 3.0, [place] # (Auto) 0.4, Eos # (Auto) 0.2, Baso # (Auto) 0.1, Sodium 144, Potassium 3.2 L, Chloride 110 H, Carbon Dioxide 29, Anion Gap 8.2, BUN 7, Creatinine 0.70, Estimated Creat Clear 108, Estimated GFR 89, Est GFR ( Amer) 108, Glucose 85, Lactate 0.9, Calcium 8.7, Magnesium 2.0, Total Bilirubin 0.5, AST 20, ALT 7 L, Alkaline Phosphatase 123, Troponin I < 0.01, Total Protein 6.5, Albumin 3.7, Globulin 2.8, Albumin/Globulin Ratio 1.3, Triglycerides 127, Cholesterol 86 L, LDL Cholesterol Direct 30.59 L, VLDL Cholesterol 25, HDL Cholesterol 28 L, Cholesterol/HDL Ratio 3.1, TSH 1.61 I & O for Last 24 hours: Intake & Output 06/01/25 06/02/25 06/03/2506/04/25 23:59 23:59 23:59 23:59 Output Total 600 / 600 Balance -600 / -600 Weight 70.579 kg Intake & Output 06/01/25 06/02/25 06/03/25 06/04/25 23:59 23:59 23:59 23:59 Output Total 600 / 600 Balance -600 / -600 Weight 155 lb 9.6 oz Constitutional Constitutional: no acute distress and cooperative *Routine HEENT Exam Eye: Present PERRL *Routine Neck Exam Neck: Present supple; Absent JVD *Routine Respiratory Exam Respiratory: Present CTA bilaterally, able to speak in complete sentences and symmetric chest movement; Absent accessory muscle use, wheezes or crackles *Routine Cardiovascular Exam Cardiovascular: Present RRR, Normal S1 and Normal S2; Absent murmur, gallop or rubs *Routine Abdominal Exam Abdominal: Present soft and normoactive bowel sounds; Absent tenderness *Routine Extremities Exam Extremities: Present pulses intact; Absent cyanosis or edema *Routine Skin Exam Skin: Present intact; Absent erythema or wounds *Routine Neurological Exam Neurological: Present alert, oriented X3 and normal speech Routine Psychiatric Exam Psychiatric: Present cooperative Results Data Completed and Pending Labs on day of discharge: Labs from last 24 hours 06/04/25 04:45 WBC 6.0 RBC 3.66 L Hgb 11.6 L Hct 35.5 L MCV 97.0 MCH 31.7 H MCHC 32.7 RDW 13.5 Plt Count 150 MPV 13.1 H Neut % (Auto) 39.3 Lymph % (Auto) 49.4 [place] % (Auto) 6.7 Eos % (Auto) 3.5 Baso % (Auto) 0.8 Neut # (Auto) 2.4 Lymph # (Auto) 3.0 [place] # (Auto) 0.4 Eos # (Auto) 0.2 Baso # (Auto) 0.1 Sodium 144 Potassium 3.2 L Chloride 110 H Carbon Dioxide 29 Anion Gap 8.2 BUN 7 Creatinine 0.70 Estimated Creat Clear 108 Estimated GFR 89 Est GFR ( Amer) 108 Glucose 85 Hemoglobin A1c 5.3 Lactate 0.9 Calcium 8.7 Magnesium 2.0 Total Bilirubin 0.5 AST 20 ALT 7 L Alkaline Phosphatase 123 Troponin I < 0.01 Total Protein 6.5 Albumin 3.7 Globulin 2.8 Albumin/Globulin Ratio 1.3 Triglycerides 127 Cholesterol 86 L LDL Cholesterol Direct 30.59 L VLDL Cholesterol 25 HDL Cholesterol 28 L Cholesterol/HDL Ratio 3.1 TSH 1.61 DS: Diagnosis Discharge Diagnosis (1) Unstable angina: Status: Acute Code(s): I20.0 - Unstable angina (2) Abnormal stress test: Status: Acute Code(s): R94.39 - Abnormal result of other cardiovascular function study (3) Coronary artery disease: Status: Acute Code(s): I25.10 - Atherosclerotic heart disease of [place] coronary artery without angina pectoris Qualifiers: Associated angina: without angina Coronary Disease-Associated Artery/Lesion type: [place] artery [place] vs. transplanted heart: [place] heart Qualified Code(s): I25.10 - Atherosclerotic heart disease of [place] coronary artery without angina pectoris (4) Tobacco use disorder: Status: Acute Code(s): F17.200 - Nicotine dependence, unspecified, uncomplicated Meds Home Medications and Allergies Home Medications ?Medication ?Instructions ?Recorded ?Confirmed ?Type cyanocobalamin (vitamin B-12) 1,000 mcg SQ MONTHLY Sup plement 02/22/23 06/04/25 History 1,000 mcg/mL injection solution erenumab-aooe 70 mg/mL 70 mg SQ MONTHLY migraines 0 02/22/23 06/04/25 History subcutaneous auto-injector (Aimovig Autoinjector) gabapentin 300 mg capsule 300 mg PO TID 02/22/2306/04 History zolpidem 10 mg tablet 10 mg PO HS 02/22/23 5 History ondansetron HCl 8 mg tablet 8 mg PO Q6H PRN Nausea And Vomiting 03/06/23 06/04/25 History aspirin 81 mg chewable tablet 81 mg PO DAILY 30 days # 30 tabs 03/27/23 06/04/25 Rx pantoprazole 40 mg tablet,delayed 40 mg PO HS 30 days #30 tabs 03/27/23 06/04/25 Rx release hydroxyzine pamoate 50 mg capsule 50 mg PO DAILY PRN A nxiety 03/29/23 06/04/25 History nitroglycerin 0.4 mg sublingual 0.4 mg sublingual D IRECTED PRN 03/29/23 06/04/25 History tablet chest pain atorvastatin 80 mg tablet 80 mg PO DAILY #90 tabs 12/2106/04/25 Rx metoprolol succinate 100 mg 100 mg PO DAILY 30 days #3 0 tabs 01/08/25 06/04/25 Rx tablet,extended release 24 hr evolocumab 140 mg/mL subcutaneous 140 mg SQ DIRECTE D EVERY 2 WEEKS 06/04/25 06/04/25 History pen injector (Repatha SureClick) potassium chloride 10 mEq 10 meq PO DAILY 06/04/25 History capsule,extended release ranolazine 500 mg tablet,extended 1,000 mg (2 x 500 mg ) PO BID #120 06/04/25 06/04/25 Rx release,12 hr tabs New Prescriptions to Start Prescriptions: Allergies Allergy/AdvReac Type Severity Reaction Status Date / Time isosorbide AdvReac Headache Verified 05/29/25 13:43 Discharge Plan Disposition Patient Disposition: Home, Self-Care Condition: Fair Follow up Plan Follow up with: Celestina Barrientos APRN [Nurse Practitioner, Cardiology] - Enter time for follow up Referral Note: in 1 week Victoriano May MD [Referring, Medical] - Enter time for follow up Prescriptions/Medication Reconciliation: Continued ondansetron HCl 8 mg tablet 8 mg PO Q6H PRN (Reason: Nausea And Vomiting) hydroxyzine pamoate 50 mg capsule 50 mg PO DAILY PRN (Reason: Anxiety) nitroglycerin 0.4 mg tablet, sublingual 0.4 mg sublingual DIRECTED PRN (Reason: chest pain) aspirin 81 mg tablet,chewable 81 mg PO DAILY 30 Days Qty: 30 0RF pantoprazole 40 mg tablet,delayed release (DR/EC) 40 mg PO HS 30 Days Qty: 30 0RF atorvastatin 80 mg tablet 80 mg PO DAILY Qty: 90 3RF metoprolol succinate 100 mg tablet extended release 24 hr 100 mg PO DAILY 30 Days Qty: 30 4RF cyanocobalamin (vitamin B-12) 1,000 mcg/mL solution 1,000 mcg SQ MONTHLY gabapentin 300 mg capsule 300 mg PO TID zolpidem 10 mg tablet 10 mg PO HS Aimovig Autoinjector 70 mg/mL auto-injector 70 mg SQ MONTHLY potassium chloride 10 mEq capsule, extended release 10 meq PO DAILY Rx Instructions: TAKE 1 CAPSULE BY MOUTH ONCE DAILY Repatha SureClick 140 mg/mL pen injector 140 mg SQ DIRECTED Changed ranolazine 500 mg tablet extended release 12 hr 1,000 mg PO BID Qty: 120 0RF Rx Instructions: TAKE 2 TABLET BY MOUTH TWICE A DAY Problem Reconciliation Problems Reviewed?: Yes Patient Discharge Instructions ACTIVITY: Continue current activity and No heavy lifting DIET: continue same diet Patient Instructions: Coronary Artery Disease, Acute Coronary Syndrome, DI for Chest Pain Print Language: [place]ic Providers Primary Care Provider: Provider,Referral Admit Provider: Ike Edwards Attending Provider: Ike Edwards
[2025-06-04] MEDS: POTASSIUM CHLORIDE 20MEQ TAB 40 MEQ PO (14:42)
--- NOTE | 2025-06-05 09:54 | SW/DCPLANNER ---
Spoke with patient on the phone. Patient stated that she is good. Patient stated that she is aware of her upcoming appointments. Patient stated that she was not prescribed any new medicine. Patient stated that she has no concerns or questions at this time. Paul Calle
== END 2025-06-04 16:14 | disposition home or self-care (01) ==
PROVIDERS: Internal Medicine; Nurse Practitioner Family; Admitting Provider Student in an Organized Health Care Education/Training Program; Visit Provider Student in an Organized Health Care Education/Training Program
PROC: 4A023N7 Measurement of Cardiac Sampling and Pressure, Left Heart, Percutaneous Approach (ICD-10-PCS; CPT 93452; principal; 2025-06-04 12:00)
DX: I25.110 Atherosclerotic heart disease of native coronary artery with unstable angina pectoris (principal); I25.2 Old myocardial infarction; I10 Essential (primary) hypertension; E78.5 Hyperlipidemia, unspecified; R00.1 Bradycardia, unspecified; R94.39 Abnormal result of other cardiovascular function study; G25.81 Restless legs syndrome; K21.9 Gastro-esophageal reflux disease without esophagitis; F17.200 Nicotine dependence, unspecified, uncomplicated; G43.909 Migraine, unspecified, not intractable, without status migrainosus; F41.9 Anxiety disorder, unspecified; F31.9 Bipolar disorder, unspecified; Z95.5 Presence of coronary angioplasty implant and graft; Z88.6 Allergy status to analgesic agent; Z82.49 Family history of ischemic heart disease and other diseases of the circulatory system; Z79.82 Long term (current) use of aspirin; Z79.899 Other long term (current) drug therapy
CPT/HCPCS: 80053; 80061; 83036; 83605; 83735; 84443; 84484; 85025; 93005; 93308; 93458; 96361; 96372; 96374; 96375; 96376; 99152; C1725; C1769; G0378; J0360; J1200; J1644; J1650; J2003; J2250; J3010; J7040; J7120; Q9967